=== PATIENT | male | born 1930 | race Caucasian/White ===

== ENCOUNTER 2016-11-22 02:52 | Inpatient (IN) | payer MEDICARE, BC ==
[~2016-11-22] VITALS: Ht 177.8 cm; Wt 80.4 kg
[2016-11-22] VITALS (10 sets, daily range): BP systolic 118–133; BP diastolic 55–61; PULSE 48–82; RESP 16–18; TEMP 99.4; Ht 177.8 cm; Wt 80.4 kg
[~2016-11-22 02:52] MED LIST: ASPI-664 PO; ATOR40TA68 PO; FINA5TAB4 PO; LEVO50TA71 PO; OMEP20CA16 PO
[2016-11-22] MEDS ORDERED: SOD CHLORIDE 0.9% 500 ML IV STA (03:13)
[2016-11-22] MEDS ORDERED: ONDANSETRON 4 MG INJ IV STA ×2 (03:31→04:47)
[2016-11-22] MEDS ORDERED: SOD CHLORIDE 0.9% 250 ML IV STA (03:32)
[2016-11-22 03:38] LABS: ADD SCAN DIFF NO
[2016-11-22 03:44] LABS: ABNORMAL IP MESSAGE 1; HEMATOCRIT 44.8 % (42.0-52.0); MEAN CORPUSCULAR HEMOGLOBIN 29.1 pg (29.0-33.0); MEAN CORPUSCULAR HGB CONC 33.5 g/dl (32.0-37.0); MEAN PLATELET VOLUME 9.7 fl (7.4-10.4); PLATELET COUNT 145 10^3/UL (140-415); RED BLOOD COUNT 5.15 10^6/ul (4.70-6.10); RED CELL DISTRIBUTION WIDTH 13.3 % (11.5-14.5); WHITE BLOOD COUNT 9.3 10^3/ul (4.8-10.8)
--- NOTE | 2016-11-22 03:44 | RADRPT ---
PROCEDURE: XR Chest. CLINICAL INDICATION: Chest pain TECHNIQUE: AP Portable chest. COMPARISON: No pertinent prior examinations were submitted for comparison. FINDINGS: There is mild to moderate cardiomegaly. Atherosclerotic calcifications are noted in the aorta. Haydee or median sternotomy is noted. Some slight prominent interstitial markings are noted throughout the chest. The osseous structures are unremarkable. IMPRESSION: Mildly increased interstitial markings possibly due to interstitial edema. RPTAT: HIKT .Giorgio Rocha MD, MD Date Time Electronically viewed and signed by .Giorgio Rocha MD, MD on 11/22/2016 03:43 .T/
[2016-11-22 03:51] LABS: INR 0.94; PARTIAL THROMBOPLASTIN TIME 26.2 Sec (25.0-35.0); PROTIME 12.6 Sec (12.2-14.2)
[2016-11-22 03:54] LABS: ALBUMIN 4.3 g/dl (3.3-4.9); CHLORIDE 102 mmol/L (97-110); SODIUM 137 mmol/L (135-144)
[2016-11-22 03:57] LABS: ALANINE AMINOTRANSFERASE 25 IU/L (13-69); ALBUMIN/GLOBULIN RATIO 1.34; ALKALINE PHOSPHATASE 56 IU/L (42-121); ANION GAP 15 (8-16); ASPARTATE AMINO TRANSFERASE 36 IU/L (15-46); BILIRUBIN,INDIRECT 1.2 mg/dl (0-1.1); BILIRUBIN,TOTAL 1.2 mg/dl (0.2-1.3); BLOOD UREA NITROGEN 23 mg/dl (7-20); CARBON DIOXIDE 24 mmol/L (21-31); CREATININE 0.98 mg/dl (0.61-1.24); GLUCOSE 121 mg/dl (70-220); TOTAL PROTEIN 7.5 g/dl (6.1-8.1)
[2016-11-22 03:58] LABS: CALCIUM 9.4 mg/dl (8.4-10.2)
[2016-11-22] MEDS ORDERED: IOHEXOL 300MG/ML 150 ML BTL ONE (03:58)
[2016-11-22] MEDS ORDERED: SOD CHLORIDE 0.9% 100 ML ONE (03:58)
--- NOTE | 2016-11-22 04:04 | RADRPT ---
PROCEDURE: Noncontrast CT Head. CLINICAL INDICATION: Dizziness TECHNIQUE: Noncontrast CT of the head was obtained. The administered radiation dose was CTDI vol = 45 mGy, DLP = 810 mGy-cm. COMPARISON: No pertinent prior examinations were submitted for comparison. FINDINGS: The ventricles and cortical sulci are mildly enlarged. There is mild decreased attenuation within t he periventricular and subcortical white matter compatible with chronic microvascular changes. There is no acute intracranial hemorrhage or extra-axial fluid collection. There is no mass effect . No midline shift is identified. There is no loss of meza-white differentiation to suggest acute in farction. The orbits are within normal limits. Some mild mucosal thickening is scattered throughout the parana tyron sinuses. No destructive osseous lesion is identified. IMPRESSION: No acute findings. Mild diffuse parenchymal volume loss and chronic microvascular changes. RPTAT: HIKT .Giorgio Rocha MD, MD Date Time Electronically viewed and signed by .Giorgio Rocha MD, on 11/22/2016 04:03 .T/
[2016-11-22 04:17] LABS: TROPONIN-I < 0.012 ng/ml (0.00-0.12)
--- NOTE | 2016-11-22 04:22 | RADRPT ---
PROCEDURE: CT angiogram of the chest, abdomen and pelvis with contrast. CLINICAL INDICATION: Chest pain. TECHNIQUE: CT angiogram of the chest, abdomen and pelvis was performed on a multi-detector high-r [employer] CT scanner. Contiguous axial images were obtained during the dynamic injection of 100 cc of Omnipaque 350 intravenous contrast. Coronal and sagittal reformatted images were also obtained. 3-D reformatted images were also obtained. Images were reviewed on the PACS workstation. One or more of the following dose reduction techniques were used: - Automated exposure control. - Adjustment of the mA and/or kV according to patient size. - Use of iterative reconstruction technique. Exam CTD/vol = 15.08 mGy. Total exam DLP = 1231.86 mGy-cm. COMPARISON: None. FINDINGS: Chest: The main pulmonary artery followed to the segmental divisions are well opacified. There is no filling defect or evidence of pulmonary embolism. The heart is increased in size with coronary a rtery calcifications. There is no pericardial thickening or effusion. The aorta is of normal cours e and caliber with scattered atherosclerotic calcifications. There is no evidence of aortic aneurys m or dissection. There is a stent within the ascending aorta. Mediasternotomy wires are present. The visualized thyroid is unremarkable. There are no enlarged a xillary lymph nodes. There are no enlarged mediastinal or hilar lymph nodes by CT criteria. There i s mild scarring within the right upper lobe. There is an irregular density within the posterior lef t upper lobe (image 65) measuring 3.0 x 2.0 cm. There is mild bibasilar atelectasis with an area of rounded atelectasis within the left posterior sulcus. There is calcified pleural plaques within the left posterior sulcus. There is no pleural effusion. The central tracheobronchial tree is within normal limits. Abdomen: The liver is normal in size. There is no focal mass or dilatation of the biliary tree. T he gallbladder is not distended. A small gallstone is identified. The spleen, pancreas and bilateral adrenal glands are within normal limits. Bilateral kidneys are normal in size with symmetric enhan cement. There is a small cyst within the mid left kidney. There is no hydronephrosis or hydrourete r. There is no retroperitoneal adenopathy. The abdominal aorta is of normal caliber without eviden ce of aneurysm or dissection. There are scattered atherosclerotic calcifications. There is a moderate-sized hiatal hernia. There is no abnormal bowel wall thickening or distension. There is no bowel obstruction or free air. The appendix is not visualized. There is sigmoid diver ticulosis without evidence of diverticulitis. There is no ascites. Pelvis: The bladder is unremarkable. The prostate is moderately enlarged. There is no significant pelvic adenopathy or free fluid. Evaluation of the osseous structures demonstrates no suspicious lytic or blastic lesion. IMPRESSION: No evidence of pulmonary embolism or aortic dissection. Irregular density within the posterior left upper lobe measuring 3.0 x 2.0 cm. Findings could repres ent rounded atelectasis; however, follow-up is recommended. Mild bibasilar atelectasis with an area of rounded atelectasis within the left posterior sulcus. Calcified pleural plaques within the left posterior sulcus could be due to old infectious/inflammato ry process or prior asbestos exposure. Mild to moderate cardiomegaly. Vascular calcifications reflective of atherosclerosis. Cholelithiasis. Moderate sized hiatal hernia. Sigmoid diverticulosis without evidence of diverticulitis. Moderately enlarged prostate. .Nino German MD, MD Date Time Electronically viewed and signed by .Nino German MD, MD on 11/22/2016 04:22 .T/
[2016-11-22 04:32] LABS: LYMPHOCYTES # 0.1 10^3/ul (0.8-2.9); MONOCYTE # 0.1 10^3/ul (0.3-0.9); NEUTROPHIL # 8.3 10^3/ul (1.6-7.5); PLATELET ESTIMATE PLT APPEAR ADEQUATE
[2016-11-22] MEDS ORDERED: SODIUM CHLORIDE 0.9% 1L BAG IV* STA (04:47)
[2016-11-22] MEDS ORDERED: CEFTRIAXONE 1 GM/50 ML (PMX) 50 ML IVPB STA (04:47)
[2016-11-22 04:52] LABS: ADD UMIC YES; URINE BILIRUBIN (Dip) NEGATIVE (NEGATIVE); URINE BLOOD (Dip) 1+ (NEGATIVE); URINE COLOR LT. YELLOW (YELLOW); URINE GLUCOSE (Dip) NEGATIVE (NEGATIVE); URINE KETONES (Dip) NEGATIVE (NEGATIVE); URINE LEUKOCYTE ESTERASE (Dip) NEGATIVE (NEGATIVE); URINE NITRITE (Dip) NEGATIVE (NEGATIVE); URINE TOTAL PROTEIN (Dip) NEGATIVE (NEGATIVE); URINE UROBILINOGEN (Dip) 0.2 E.U./dL (0.1-1.0)
[2016-11-22 05:01] LABS: SQUAMOUS EPITHELIAL CELL,UR RARE
--- NOTE | 2016-11-22 05:21 | ERA ---
ER Documentation Chief Complaint Date/Time DATE: 11/22/16 TIME: 05:00 Chief Complaint dizziness and nausea for 30 minutes HPI 86-year-old male with a history of CABG, TAVR, BPH and hypothyroidism presenting to the ER for acute onset dizziness and weakness at home. Per his girlfriend, he was getting out of bed to go use the restroom and felt very dizzy and weak. He started urinating on himself as he could not make it to the bathroom. He denied any chest pain, shortness of breath, vision disturbance. He felt somewhat lightheaded with some room spinning dizziness and states his legs started to feel very weak. He has not felt like this before. He denies any recent illnesses. No current chest pain, shortness of breath, fever, chills , abdominal pain, or back pain. He does endorse bilateral lower extremity pain that he is unable to describe. ROS All systems reviewed and are negative except as per history of present illness. Medications Home Meds Reported Medications Atorvastatin* (Atorvastatin*) 40 Mg Tablet, 40 MG PO QHS, #30 TAB 06/20/16 Omeprazole* (Omeprazole*) 20 Mg Capsule.dr, 20 MG PO DAILY, #30 CAP 06/20/16 Finasteride* (Finasteride*) 5 Mg Tablet, 5 MG PO DAILY, TAB 06/20/16 Levothyroxine Sodium* (Levoxyl*) 50 Mcg Tablet, 50 MCG PO BEFORE BREAKFAST, #30 TAB 06/20/16 Aspirin (Low Dose Aspirin) 81 Mg Tablet.dr, 81 MG PO DAILY, #30 TAB 06/20/16 Allergies Allergies: Coded Allergies: No Known Allergy (Unverified , 06/20/16) PMhx/Soc History of Surgery: Yes (valve replacement and five vessel bypass) Anesthesia Reaction: No Hx Neurological Disorder: No Hx Respiratory Disorders: No Hx Cardiac Disorders: Yes (CABG, VALVE REPLACEMENT) Hx Psychiatric Problems: No Hx Miscellaneous Medical Probl: Yes (Hypothyroidism, BPH) Hx Alcohol Use: Yes (1-2 BEERS/WEEK) Hx Substance Use: No Hx Tobacco Use: No Smoking Status: Never smoker FmHx Family History: No diabetes Physical Exam Vitals Vital Signs Date Time Temp Pulse Resp B/P Pulse Ox O2 Delivery O2 Flow Rate FiO2 11/22/16 05:40 100.3 83 20 138/58 100 Room Air 11/22/16 04:38 101.3 89 18 147/64 96 11/22/16 03:34 99.3 90 177/78 11/22/16 03:08 84 26 177/78 98 Physical Exam Const: Ill-appearing, no distress, sleepy Head: Atraumatic Eyes: Normal Conjunctiva, PERRLA, EOMI, no nystagmus ENT: Dry oral mucosa Neck: Full range of motion. No JVD. No meningismus. Resp: Clear to auscultation bilaterally Cardio: Regular rate and rhythm, no murmurs Abd: Soft, non tender, non distended. No pulsatile masses. Normal bowel sounds Skin: No petechiae or rashes Back: No midline or flank tenderness Ext: No cyanosis, or edema. 2+ radial pulses bilaterally, equal. 2+ DP and PT pulses bilaterally, equal. Neur: Awake, sleepy, oriented 3. Cranial nerves intact. Strength and sensations intact in all 4 extremities. Difficulty with rapid alternating movements, unable to test gait secondary to dizziness Psych: Normal Mood and Affect Result Diagram: 11/22/16 0325 11/22/16 0325 Results 24 hrs Laboratory Tests Test 11/22/16 03:25 11/22/16 04:35 White Blood Count 9.310^3/ul Red Blood Count 5.1510^6/ul Hemoglobin 15.0g/dl Hematocrit 44.8% Mean Corpuscular Volume 87.0fl Mean Corpuscular Hemoglobin 29.1pg Mean Corpuscular Hemoglobin Concent 33.5g/dl Red Cell Distribution Width 13.3% Platelet Count 96370^3/UL Mean Platelet Volume 9.7fl Neutrophils % 89.0% Band Neutrophils % 9.0% Lymphocytes % 1.0% Monocytes % 1.0% Neutrophils # 8.310^3/ul Lymphocytes # 0.110^3/ul Monocytes # 0.110^3/ul Platelet Estimate PLT APPEAR ADEQUATE Prothrombin Time 12.6Sec Prothrombin Time Ratio 1.0 INR International Normalized Ratio 0.94 Activated Partial Thromboplast Time 26.2Sec Sodium Level 137mmol/L Potassium Level 4.0mmol/L Chloride Level 102mmol/L Carbon Dioxide Level 24mmol/L Anion Gap 15 Blood Urea Nitrogen 23mg/dl Creatinine 0.98mg/dl Glucose Level 121mg/dl Calcium Level 9.4mg/dl Total Bilirubin 1.2mg/dl Direct Bilirubin 0.00mg/dl Indirect Bilirubin 1.2mg/dl Aspartate Amino Transf (AST/SGOT) 36IU/L Alanine Aminotransferase (ALT/SGPT) 25IU/L Alkaline Phosphatase 56IU/L Troponin I < 0.012ng/ml Total Protein 7.5g/dl Albumin 4.3g/dl Globulin 3.20g/dl Albumin/Globulin Ratio 1.34 Urine Color LT. YELLOW Urine Clarity CLEAR Urine pH 7.5 Urine Specific [place] 1.010 Urine Ketones NEGATIVE Urine Nitrite NEGATIVE Urine Bilirubin NEGATIVE Urine Urobilinogen 0.2 E.U./dL Urine Leukocyte Esterase NEGATIVE Urine Microscopic RBC 5-10/HPF Urine Microscopic WBC 0-2/HPF Urine Squamous Epithelial Cells RARE Urine Hemoglobin 1+ Urine Glucose NEGATIVE% Urine Total Protein NEGATIVE Current Medications Medications (Trade) Dose Ordered Sig/Vel Route PRN Reason Start Time Stop Time Status Last Admin Dose Admin Sodium Chloride (NS) 500 ml @ 500 mls/hr Q1H STAT IV 11/22/16 03:13 11/22/16 04:12 DC 11/22/16 03:46 Ondansetron HCl 4 mg 4 mg ONCE STAT IV 11/22/16 03:31 11/22/16 03:33 DC 11/22/16 03:46 Sodium Chloride 250 ml @ 250 mls/hr Q1H STAT IV 11/22/16 03:32 11/22/16 04:31 DC 11/22/16 05:06 Sodium Chloride (NS) 100 ml @ ud STK-MED ONCE .ROUTE 11/22/16 03:58 11/22/16 03:59 DC 11/22/16 04:18 Iohexol (Omnipaque 300mg/ ml) 150 ml STK-MED ONCE .ROUTE 11/22/16 03:58 11/22/16 03:59 DC 11/22/16 04:17 Sodium Chloride 1830 ml 1,830 ml BOLUS OVER 2 HOURS STAT IV* 11/22/16 04:47 11/22/16 04:51 DC 11/22/16 05:05 Ceftriaxone Sodium (Rocephin) 50 ml @ 100 mls/hr ONCE STAT IVPB 11/22/16 04:47 11/22/16 05:16 DC 11/22/16 05:05 Ondansetron HCl (Zofran Inj) 4 mg ONCE STAT IV 11/22/16 04:47 11/22/16 04:51 DC 11/22/16 05:05 Procedures/MDM EMERGENT LABS AND DIAGNOSTIC STUDIES: Lab Results above were reviewed and interpreted by me. CBC and CMP within normal limits Troponin within normal limits Urinalysis does not show evidence of UTI EKG #1: Rate/Rhythm: Normal Sinus Rhythm QRS, ST, T-waves: Left anterior fascicular block, no changes consistent w/ acute ischemia Impression: No evidence of ischemia or arrhythmia EKG #2: Rate/Rhythm: Normal Sinus Rhythm QRS, ST, T-waves: Left anterior fascicular block, no changes consistent w/ acute ischemia Impression: No evidence of ischemia or arrhythmia Rhythm strip: Rate/Rhythm: Bradycardia at 38 bpm second-degree AV block type II Impression: Sinus Bradycardia at 38 bpm second-degree AV block type II, no evidence of ischemia or arrhythmia Radiology Results as interpreted by Radiology below were reviewed by Tian Hoyos MD: Chest x-ray shows mild interstitial edema CTA chest, abdomen, pelvis: No evidence of pulmonary embolism or aortic dissection. Irregular density within the posterior left upper lobe measuring 3.0 x 2.0 cm. Findings could represent rounded atelectasis; however, follow-up is recommended. Mild bibasilar atelectasis with an area of rounded atelectasis within the left posterior sulcus. Calcified pleural plaques within the left posterior sulcus could be due to old infectious/inflammatory process or prior asbestos exposure. Mild to moderate cardiomegaly. Vascular calcifications reflective of atherosclerosis. Cholelithiasis. Moderate sized hiatal hernia. Sigmoid diverticulosis without evidence of diverticulitis. Moderately enlarged prostate. CT head: No acute abnormalities Initial Nursing notes reviewed. Previous Medical Records requested via the Electronic Health Record. EMERGENCY DEPARTMENT COURSE / MEDICAL DECISION MAKING: Patient is presenting with generalized weakness, intermittent dizziness, and nausea. Upon presentation, the patient was afebrile with mild tachypnea. Differential includes but is not limited to acute coronary syndrome, acute infection, CVA, intracranial hemorrhage. Chest x-ray did not show pneumonia but there is some interstitial edema. CT head was normal. There are no significant findings on exam other than some urinary hesitation. The patient did spike a fever while in the department. The source of this is unclear. Sepsis workup was initiated. Urinalysis does not show evidence of infection. CTA of the chest abdomen and pelvis was done to evaluate for aortic dissection and did not show evidence of dissection or other acute abnormalities. Broad- spectrum antibiotics and 30 cc/kg of IV fluids were given. It is still possible that his fever is not secondary to an infection. It is also possible that he has occult bacteremia of unclear etiology. I have a low suspicion for meningitis or encephalitis. Several times during his stay, the patient became bradycardic to the 30s with associated nausea and dizziness. Rhythm strip shows evidence of paroxysmal bradycardia with type II AV block, indicative of sick sinus syndrome. Patient will likely need an AICD placement. Patient's symptoms have not stabilized and the patient is at risk of rapid decompensation. The patient will be admitted for careful hydration, cardiac monitoring, antibiotic therapy, and infectious source control. Severe Sepsis Assessment: Infectious Source: Unknown End organ damage indicated by: none Severe Sepsis Managment: Blood Cultures X 2 before broad spectrum antibiotics initiated within 3 hours of recognition. 30 ml/kg NS bolus Completed Initial Lactate: normal Repeat Lactate not indicated as initial < 2.0 Critical Care: Time: 40 minutes Treatments/Evaluations: Emergent fluid management, while maintaining close respiratory support. Immediate broad spectrum antibiotic therapy. Simultaneous assessment for possible sources in order to direct therapy. Consideration for invasive and chemical support to prevent respiratory or cardiac collapse. Septic Shock Assessment (1 hour post 30 ml/kg fluid bolus): Hypotension (SBP < 90 or 40 mmHg drop, MAP < 65): [No] Lactic acid > 4.0 [No] Accepting Care Team: Current data and ongoing care discussed. Time: Time of admission Primary Provider: Chris Consulting: none Outstanding Data: cultures Departure Diagnosis: Primary Impression: Near syncope Additional Impressions: Generalized weakness Bradycardia, unspecified Fever Qualified Code: R50.9 - Fever, unspecified fever cause Condition: Critical LEANDRA HOYOS MD Nov 22, 2016 05:12 ultrasound volume assessment, passive leg raise, trial of further fluid bolus. And proceded with [XOXOXO] Accepting Care Team: Current data and ongoing care discussed. Time: Time of admission Primary Provider: [XOXOXO] Consulting: [XOXOXO] Outstanding Data: none Departure Diagnosis: Primary Impression: Near syncope Additional Impressions: Generalized weakness Bradycardia, unspecified Fever Qualified Code: R50.9 - Fever, unspecified fever cause Condition: Serious LEANDRA HOYOS MD Nov 22, 2016 05:12
[2016-11-22] MEDS ORDERED: ACETAMINOPHEN 325 MG TAB PO PRN ×2 (06:30→09:30)
[2016-11-22] MEDS ORDERED: ONDANSETRON 4 MG INJ IV PRN ×2 (06:30→09:30)
[2016-11-22] MEDS ORDERED: DOCUSATE SODIUM 100 MG CAP PO PRN (09:30)
[2016-11-22] MEDS ORDERED: NACL 0.9% 3 ML SYG IV SCH (09:30)
[2016-11-22 10:18] LABS: CREATINE KINASE 59 IU/L (23-200)
--- NOTE | 2016-11-22 10:19 | CONS ---
Date/Time of Note Date/Time of Note DATE: 11/22/16 TIME: 10:15 Assessment/Plan Assessment/Plan Additional Assessment/Plan WEAKNESS/DIZZINESS S/P BRADYCARDIA WITH SECOND DEGREEE HEART BLOCK - TYPE I VS !! HX OF CABG HX OF BIOAVR > S/P TAVR HX OF HEAD AND NECK CANCER HTN -The patinent with sinus bradycardia at HR 40 that was transeint wiht Second Degreee Mobitz heart block - ccould be wenkeback vs Type 2 -Will monitor on tele, but no recurrence -will plan for an echo -avoid av blolockers -add acei due to hx of CAB Consultation Date/Type/Reason Admit Date/Time Nov 22, 2016 at 06:14 Hx of Present Illness 86-year-old male with a history of CABG, TAVR, BPH and hypothyroidism presenting to the ER for acute onset dizziness and weakness at home. His hx was obtained from his daughter but he was wiht his girlfriend at that time - he was getting out of bed to go use the restroom and felt very dizzy and weak. He started urinating on himself as he could not make it to the bathroom. He denied any chest pain, shortness of breath, vision disturbance. He felt somewhat lightheaded with some room spinning dizziness and states his legs started to feel very weak. He has not felt like this before. He denies any recent illnesses. No current chest pain, shortness of breath, fever, chills, abdominal pain, or back pain. Upon arrival to the ER, he had transient bradycardia wiht heart blokc but no sycnope ad as such, I was asked to see him in cardiac consultaiton. Social History Smoking Status: Never smoker Exam/Review of Systems Vital Signs Vitals Vital Signs Date Time Temp Pulse Resp B/P Pulse Ox O2 Delivery O2 Flow Rate FiO2 11/22/16 08:16 82 11/22/16 07:57 98.0 18 123/58 93 11/22/16 07:32 Room Air Results Result Diagram: 11/22/16 0325 11/22/16 0325 Results 24 hrs Laboratory Tests Test 11/22/16 03:25 11/22/16 04:35 11/22/16 05:00 11/22/16 07:10 White Blood Count 9.3 Red Blood Count 5.15 Hemoglobin 15.0 Hematocrit 44.8 Mean Corpuscular Volume 87.0 Mean Corpuscular Hemoglobin 29.1 Mean Corpuscular Hemoglobin Concent 33.5 Red Cell Distribution Width 13.3 Platelet Count 145 Mean Platelet Volume 9.7 Neutrophils % 89.0 H Band Neutrophils % 9.0 H Lymphocytes % 1.0 L Monocytes % 1.0 Neutrophils # 8.3 H Lymphocytes # 0.1 L Monocytes # 0.1 L Platelet Estimate PLT APPEAR ADEQUATE Prothrombin Time 12.6 Prothrombin Time Ratio 1.0 INR International Normalized Ratio 0.94 Activated Partial Thromboplast Time 26.2 Sodium Level 137 Potassium Level 4.0 Chloride Level 102 Carbon Dioxide Level 24 Anion Gap 15 Blood Urea Nitrogen 23 H Creatinine 0.98 Glucose Level 121 Calcium Level 9.4 Total Bilirubin 1.2 Direct Bilirubin 0.00 Indirect Bilirubin 1.2 H Aspartate Amino Transf (AST/SGOT) 36 Alanine Aminotransferase (ALT/SGPT) 25 Alkaline Phosphatase 56 Troponin I < 0.012 Total Protein 7.5 Albumin 4.3 Globulin 3.20 Albumin/Globulin Ratio 1.34 Urine Color LT. YELLOW Urine Clarity CLEAR Urine pH 7.5 Urine Specific [place] 1.010 Urine Ketones NEGATIVE Urine Nitrite NEGATIVE Urine Bilirubin NEGATIVE Urine Urobilinogen 0.2 E.U./dL Urine Leukocyte Esterase NEGATIVE Urine Microscopic RBC 5-10 Urine Microscopic WBC 0-2 Urine Squamous Epithelial Cells RARE Urine Hemoglobin 1+ H Urine Glucose NEGATIVE Urine Total Protein NEGATIVE Lactic Acid Level 1.2 0.9 Medications Medications Current Medications Ondansetron HCl (Zofran Inj) 4 mg Q6H PRN IV NAUSEA AND/OR VOMITING; Start at 09:30 Aspirin (Aspirin) 81 mg DAILY PO ; Start 11/22/16 at 10:30 Acetaminophen (Tylenol Tab) 650 mg Q6H PRN PO PAIN LEVEL 1-3 OR FEVER; Start at 09:30 Docusate Sodium (Colace) 100 mg Q12H PRN PO CONSTIPATION; Start 11/22/16 at 09: 30 Pantoprazole (Protonix Tab) 40 mg DAILY@06 PO ; Start 11/22/16 at 10:30 Enoxaparin Sodium (Lovenox) 40 mg DAILY SC ; Start 11/22/16 at 10:30 Atorvastatin Calcium (Lipitor) 40 mg QHS PO ; Start 11/22/16 at 21:00 Finasteride (Proscar) 5 mg DAILY PO ; Start 11/22/16 at 11:30 BILLY HINKLE MD Nov 22, 2016 10:19
[2016-11-22 10:25] LABS: CK-MB 0.85 ng/ml (0.0-2.4)
[2016-11-22 10:33] LABS: TROPONIN-I < 0.012 ng/ml (0.00-0.12)
[2016-11-22] MEDS: PANTOPRAZOLE (EC) 40 MG TAB PO SCH (11:01)
[2016-11-22] MEDS: ASPIRIN 81 MG TAB PO SCH (11:01)
[2016-11-22] MEDS: ENOXAPARIN 40 MG/0.4 ML SYG SC SCH (11:02)
--- NOTE | 2016-11-22 13:01 | HP ---
Date/Time of Note Date/Time of Note DATE: 11/22/16 TIME: 12:45 Assessment/Plan VTE Prophylaxis VTE Prophylaxis Intervention: LMWH Lines/Catheters IV Catheter Type (from Nrs): Peripheral IV Assessment/Plan Problems: (1) Fever Status: Acute Comment: Uncertain etiology. Pt. did receive antibiotics in ER but no source identified. Possibly viral. Will monitor. Poss. ID consult if recurs. Qualifiers: Fever type: unspecified Qualified Code: R50.9 - Fever, unspecified fever cause (2) Mobitz (type) II atrioventricular block Status: Acute Comment: Cardiology consult to eval. May need pacer (3) Cardiomegaly Status: Chronic Comment: Cardiology consult to eval. ECHO likely (4) Atelectasis pulmonary Status: Acute Comment: Monitor respiratory status (5) Pure hypercholesterolemia Status: Chronic Comment: Cont. statin (6) Gastro-esophageal reflux disease without esophagitis Status: Chronic Comment: Cont. PPI (7) Hypothyroidism Status: Chronic Comment: Cont. LT4. Check TFT Qualifiers: Hypothyroidism type: acquired Qualified Code: E03.9 - Acquired hypothyroidism (8) Enlarged prostate with lower urinary tract symptoms (LUTS) Status: Chronic Qualifiers: Prostatic enlargement morphology: unspecified morphology Qualified Code: N40.1 - Benign prostatic hyperplasia with lower urinary tract symptoms, unspecified morphology HPI/ROS Admit Date/Time Admit Date/Time Nov 22, 2016 at 06:14 Hx of Present Illness 86 y/o C M w/ h/o CAD s/p CABG, aortic valve disease s/p bioreplacement, s/p TAVR, laryngeal CA s/p XRT, hypothyroidism, hyperlipidemia, GERD, BPH in [facility] until early this am when he awoke to go to the bathroom which he usually does several times per night. However, in this case, was too weak to get up. Developed chills. GF called daughter who came over and tried to help pt. but pt. could not be helped and 911 had to be called. Pt. brought to [facility]. In ER pt. initially hypertensive and subsequently febrile to 101.3 but no source identified. Pt. had intermittent Mobitz II rhythm on the heart monitor. Pt. had CT angiogram and head CT that did not yield any acute findings and labs were also not helpful. Pt. admitted for monitoring, cardiology eval and further work-up. ROS Subjective hx not possible: pt non-verbal (sleeping) PMH/Family/Social Past Medical History Medical History: cancer (laryngeal), coronary artery disease, GERD, high cholesterol, hypothyroid, other (BPH, aortic valve disease) Past Surgical History Past Surgical Hx: coronary bypass surgery, other (aortic valve replacement x 2) Family History Significant Family History: heart disease (father and GF), cancer (mother) Social History b. MARY Diaz, dental school grad, [employer] ret'd, ret'd DDS, , 3 children , lives w/ GF Alcohol Use: occasionally Smoking Status: Former smoker (small amount in youth) Drug Use: none Exam/Review of Systems Vital Signs Vitals VS - Last 72 Hours, by Label Date Time Temp Pulse Resp B/P Pulse Ox O2 Delivery O2 Flow Rate FiO2 11/22/16 12:15 68 11/22/16 11:33 98.2 78 18 118/57 95 11/22/16 08:16 82 11/22/16 07:57 98.0 85 18 123/58 93 11/22/16 07:32 99.4 83 20 134/69 98 Room Air 11/22/16 06:40 100.5 85 18 130/78 95 Room Air 11/22/16 05:40 100.3 83 20 138/58 100 Room Air 11/22/16 04:38 101.3 89 18 147/64 96 11/22/16 03:34 99.3 90 177/78 11/22/16 03:08 84 26 177/78 98 Vital Signs Date Time Temp Pulse Resp B/P Pulse Ox O2 Delivery O2 Flow Rate FiO2 11/22/16 12:15 68 11/22/16 11:33 98.2 18 118/57 95 11/22/16 07:32 Room Air Exam Constitutional: alert, oriented, well developed Psych: nl mood/affect, no complaints Eyes: EOMI, PERRL, nl conjunctiva, nl lids, nl sclera ENMT: mucosa pink and moist, nl external ears & nose Neck: non-tender, supple, No bruits, No masses, No thyromegaly Respiratory: clear to auscultation, normal air movement Cardiovascular: nl pulses, regular rate and rhythm, No edema, No murmurs/extra sounds, No rub Gastrointestinal: bowel sounds, nl liver, spleen, non-tender, soft, No mass, No rebound or guarding Musculoskeletal: nl extremities to inspection Extremities: normal pulses, No clubbing, No cyanosis, No edema Neurological: lethargic Labs Result Diagram: 11/22/16 0325 11/22/16 0325 Medications Medications Current Medications Ondansetron HCl (Zofran Inj) 4 mg Q6H PRN IV NAUSEA AND/OR VOMITING; Start at 09:30 Aspirin (Aspirin) 81 mg DAILY PO Last administered on 11/22/16 11:01; Admin Dose 81 MG; Start 11/22/16 at 10:30 Acetaminophen (Tylenol Tab) 650 mg Q6H PRN PO PAIN LEVEL 1-3 OR FEVER; Start at 09:30 Docusate Sodium (Colace) 100 mg Q12H PRN PO CONSTIPATION; Start 11/22/16 at 09: 30 Pantoprazole (Protonix Tab) 40 mg DAILY@06 PO Last administered on 11/22/16 11 :01; Admin Dose 40 MG; Start 11/22/16 at 10:30 Enoxaparin Sodium (Lovenox) 40 mg DAILY SC Last administered on 11/22/16 11:02 ; Admin Dose 40 MG; Start 11/22/16 at 10:30 Atorvastatin Calcium (Lipitor) 40 mg QHS PO ; Start 11/22/16 at 21:00 Finasteride (Proscar) 5 mg DAILY PO ; Start 11/22/16 at 11:30 Benazepril HCl (Lotensin) 5 mg DAILY PO ; Start 11/23/16 at 09:00 MAKAYLA RAMIREZ MD Nov 22, 2016 12:55
[2016-11-22] MEDS: FINASTERIDE 5 MG TAB PO SCH (13:14)
[2016-11-22] MEDS: LEVOTHYROXINE 50 MCG TAB PO SCH (13:14)
[2016-11-22 15:52] LABS: CREATINE KINASE 58 IU/L (23-200)
[2016-11-22 16:10] LABS: CK-MB 0.76 ng/ml (0.0-2.4); TROPONIN-I < 0.012 ng/ml (0.00-0.12)
[2016-11-22] MEDS: ATORVASTATIN 40 MG TAB PO SCH (21:12)
[2016-11-23] VITALS (15 sets, daily range): BP systolic 107–129; BP diastolic 55–62; PULSE 56–128; RESP 16–20
[2016-11-23] MEDS: LEVOTHYROXINE 50 MCG TAB PO SCH ×2 (05:44→08:52)
[2016-11-23] MEDS: PANTOPRAZOLE (EC) 40 MG TAB PO SCH (05:44)
[2016-11-23 07:05] LABS: ADD SCAN DIFF NO
[2016-11-23 07:10] LABS: ABNORMAL IP MESSAGE 1; BASOPHILS % 0.3 % (0.0-2.0); EOSINOPHILS # 0.1 10^3/ul (0.0-0.5); EOSINOPHILS % 0.9 % (0.0-7.0); HEMATOCRIT 38.8 % (42.0-52.0); LYMPHOCYTES # 0.6 10^3/ul (0.8-2.9); LYMPHOCYTES % 6.9 % (15.0-51.0); MEAN CORPUSCULAR HEMOGLOBIN 29.2 pg (29.0-33.0); MEAN CORPUSCULAR HGB CONC 33.5 g/dl (32.0-37.0); MEAN CORPUSCULAR VOLUME 87.2 fl (82.0-101.0); MEAN PLATELET VOLUME 9.5 fl (7.4-10.4); MONOCYTE # 0.5 10^3/ul (0.3-0.9); MONOCYTES % 5.9 % (0.0-11.0); NEUTROPHIL # 6.8 10^3/ul (1.6-7.5); NEUTROPHILS % 85.6 % (39.0-77.0); PLATELET COUNT 97 10^3/UL (140-415); RED BLOOD COUNT 4.45 10^6/ul (4.70-6.10); RED CELL DISTRIBUTION WIDTH 13.6 % (11.5-14.5); WHITE BLOOD COUNT 7.9 10^3/ul (4.8-10.8)
[2016-11-23 07:36] LABS: ALBUMIN/GLOBULIN RATIO 1.11; BILIRUBIN,INDIRECT 1.1 mg/dl (0-1.1); BILIRUBIN,TOTAL 1.1 mg/dl (0.2-1.3); CREATININE 1.01 mg/dl (0.61-1.24); MAGNESIUM 1.9 mg/dl (1.7-2.5); POTASSIUM 3.8 mmol/L (3.5-5.1); TOTAL PROTEIN 5.7 g/dl (6.1-8.1)
[2016-11-23 07:55] LABS: THYROID STIMULATING HORMONE 3.28 MIU/L (0.465-4.680)
[2016-11-23] MEDS: FINASTERIDE 5 MG TAB PO SCH (08:52)
[2016-11-23] MEDS: ASPIRIN 81 MG TAB PO SCH (08:55)
[2016-11-23] MEDS: ENOXAPARIN 40 MG/0.4 ML SYG SC SCH (08:55)
[2016-11-23] MEDS: BENAZEPRIL 5 MG TAB PO SCH (09:00)
--- NOTE | 2016-11-23 09:09 | RADRPT ---
PROCEDURE: XR Chest. CLINICAL INDICATION: Shortness of breath. TECHNIQUE: Single frontal view. COMPARISON: 11/22/2016. FINDINGS: There is mild atelectasis in the left mid lung zone. The lungs are otherwise clear. The heart is enlarged. There is calcification in the aorta consistent with atherosclerosis. There are sternal wires and mediastinal clips and transarterial aortic valve replacement. There is no pleural effusion. There is no pneumothorax. IMPRESSION: 1. Mild atelectasis in the left mid lung zone. 2. Cardiomegaly and atherosclerosis. 3. Transarterial aortic valve replacement. 4. Otherwise unremarkable study. RPTAT: QQ .Corona Willoughby MD, MD Date Time Electronically viewed and signed by .Corona Willoughby MD, MD on 11/23/2016 09:08 .R/
--- NOTE | 2016-11-23 14:05 | PN ---
Date/Time of Note Date/Time of Note DATE: 11/23/16 TIME: 13:57 Assessment/Plan VTE Prophylaxis VTE Prophylaxis Intervention: LMWH Lines/Catheters IV Catheter Type (from Nrs): Saline Lock Urinary Cath still in place: Yes Reason Cath still needed: urinary retention Assessment/Plan Problems: (1) Fever Status: Acute Comment: Occurred 2x yesterday but has not occurred today. Cultures negative. If recurs, will call ID. O/w likely viral or due to atelectasis. Qualifiers: Fever type: unspecified Qualified Code: R50.9 - Fever, unspecified fever cause (2) Generalized weakness Status: Acute Comment: Seems to be improved but not resolved. Able to ambulate this am w/ PT w/ walker. This is not baseline. Working w/ ST on speech eval (3) Hypothyroidism Status: Chronic Comment: TSH NL on current replacement dose Qualifiers: Hypothyroidism type: acquired Qualified Code: E03.9 - Acquired hypothyroidism (4) Mobitz (type) II atrioventricular block Status: Acute Comment: Defer to cardiology recs (5) Cardiomegaly Status: Chronic Comment: Defer to cardiology recs (6) Constipation Status: Chronic Comment: Add pt.'s home meds to help w/ regular transit Subjective 24 Hr Interval Summary Constitutional: improved, no complaints Respiratory: no complaints Cardiovascular: no complaints Gastrointestinal: constipation Genitourinary: no complaints Musculoskeletal: no complaints Neurologic: no complaints Exam/Review of Systems Vital Signs Vitals VS - Last 72 Hours, by Label Date Time Temp Pulse Resp B/P Pulse Ox O2 Delivery O2 Flow Rate FiO2 11/23/16 12:37 61 11/23/16 12:21 98.1 58 18 129/59 98 11/23/16 08:37 57 11/23/16 08:07 97.9 56 18 121/59 96 11/23/16 04:30 58 11/23/16 03:50 98.3 60 16 108/55 96 11/23/16 00:43 98.3 58 16 124/59 98 11/23/16 00:27 56 11/22/16 22:50 48 11/22/16 20:37 72 11/22/16 20:34 98.2 66 16 118/55 95 11/22/16 16:19 74 11/22/16 15:49 100.6 71 18 133/61 94 11/22/16 12:15 68 11/22/16 11:33 98.2 78 18 118/57 95 11/22/16 08:16 82 11/22/16 07:57 98.0 85 18 123/58 93 11/22/16 07:32 99.4 83 20 134/69 98 Room Air 11/22/16 06:40 100.5 85 18 130/78 95 Room Air 11/22/16 05:40 100.3 83 20 138/58 100 Room Air 11/22/16 04:38 101.3 89 18 147/64 96 11/22/16 03:34 99.3 90 177/78 11/22/16 03:08 84 26 177/78 98 Vital Signs Date Time Temp Pulse Resp B/P Pulse Ox O2 Delivery O2 Flow Rate FiO2 11/23/16 12:37 61 11/23/16 12:21 98.1 18 129/59 98 11/22/16 07:32 Room Air Intake and Output 11/22/16 11/22/16 11/23/16 15:00 23:00 07:00 Intake Total 250 ml Output Total 300 ml Balance -50 ml Exam Constitutional: alert, oriented, well developed Psych: nl mood/affect, no complaints Respiratory: clear to auscultation, normal air movement Cardiovascular: nl pulses, regular rate and rhythm, No edema, No murmurs/extra sounds, No rub Gastrointestinal: bowel sounds, nl liver, spleen, non-tender, soft, No mass, No rebound or guarding Musculoskeletal: nl extremities to inspection Extremities: normal pulses, No clubbing, No cyanosis, No edema Neurological: ACTUARIAL MANAGER II-XII intact, nl mental status, nl speech, nl strength Results Result Diagram: 11/23/1642 11/23/1642 Results 24 hrs Laboratory Tests Test 11/22/16 15:25 11/23/16 06:42 Creatine Kinase 58 Creatine Kinase Index 1.3 Creatinine Kinase MB (Mass) 0.76 Troponin I < 0.012 White Blood Count 7.9 Red Blood Count 4.45 L Hemoglobin 13.0 L Hematocrit 38.8 L Mean Corpuscular Volume 87.2 Mean Corpuscular Hemoglobin 29.2 Mean Corpuscular Hemoglobin Concent 33.5 Red Cell Distribution Width 13.6 Platelet Count 97 #L Mean Platelet Volume 9.5 Neutrophils % 85.6 H Lymphocytes % 6.9 L Monocytes % 5.9 Eosinophils % 0.9 Basophils % 0.3 Nucleated Red Blood Cells % 0.0 Neutrophils # 6.8 Lymphocytes # 0.6 L Monocytes # 0.5 Eosinophils # 0.1 Basophils # 0.0 Nucleated Red Blood Cells # 0.0 Sodium Level 132 L Potassium Level 3.8 Chloride Level 104 Carbon Dioxide Level 26 Anion Gap 6 #L Blood Urea Nitrogen 24 H Creatinine 1.01 Glucose Level 100 Calcium Level 8.0 L Magnesium Level 1.9 Total Bilirubin 1.1 Direct Bilirubin 0.00 Indirect Bilirubin 1.1 Aspartate Amino Transf (AST/SGOT) 25 Alanine Aminotransferase (ALT/SGPT) 27 Alkaline Phosphatase 40 L Total Protein 5.7 #L Albumin 3.0 #L Globulin 2.70 Albumin/Globulin Ratio 1.11 Triglycerides Level 92 Cholesterol Level 147 LDL Cholesterol, Calculated 58 HDL Cholesterol 71 Cholesterol/HDL Ratio 2.0 Thyroid Stimulating Hormone (TSH) 3.280 Medications Medications Current Medications Ondansetron HCl (Zofran Inj) 4 mg Q6H PRN IV NAUSEA AND/OR VOMITING; Start at 09:30 Aspirin (Aspirin) 81 mg DAILY PO Last administered on 11/23/16 08:55; Admin Dose 81 MG; Start 11/22/16 at 10:30 Acetaminophen (Tylenol Tab) 650 mg Q6H PRN PO PAIN LEVEL 1-3 OR FEVER; Start at 09:30 Docusate Sodium (Colace) 100 mg Q12H PRN PO CONSTIPATION; Start 11/22/16 at 09: 30 Pantoprazole (Protonix Tab) 40 mg DAILY@06 PO Last administered on 11/23/16 05 :44; Admin Dose 40 MG; Start 11/22/16 at 10:30 Enoxaparin Sodium (Lovenox) 40 mg DAILY SC Last administered on 11/23/16 08:55 ; Admin Dose 40 MG; Start 11/22/16 at 10:30 Atorvastatin Calcium (Lipitor) 40 mg QHS PO Last administered on 11/22/16 21: 12; Admin Dose 40 MG; Start 11/22/16 at 21:00 Finasteride (Proscar) 5 mg DAILY PO Last administered on 11/23/16 08:52; Admin Dose 5 MG; Start 11/22/16 at 11:30 Benazepril HCl (Lotensin) 5 mg DAILY PO ; Start 11/23/16 at 09:00 MAKAYLA RAMIREZ MD Nov 23, 2016 14:04
--- NOTE | 2016-11-23 15:27 | PN ---
Date/Time of Note Date/Time of Note DATE: 11/23/16 TIME: 15:26 Assessment/Plan VTE Prophylaxis VTE Prophylaxis Intervention: SCD's Lines/Catheters IV Catheter Type (from Nrs): Saline Lock Urinary Cath still in place: Yes Reason Cath still needed: urinary retention Assessment/Plan Chief Complaint/Hosp Course 86-year-old male with a history of CABG, TAVR, BPH and hypothyroidism presenting to the ER for acute onset dizziness and weakness at home. His hx was obtained from his daughter but he was wiht his girlfriend at that time - he was getting out of bed to go use the restroom and felt very dizzy and weak. He started urinating on himself as he could not make it to the bathroom. He denied any chest pain, shortness of breath, vision disturbance. He felt somewhat lightheaded with some room spinning dizziness and states his legs started to feel very weak. He has not felt like this before. He denies any recent illnesses. No current chest pain, shortness of breath, fever, chills, abdominal pain, or back pain. Upon arrival to the ER, he had transient bradycardia wiht heart blokc but no sycnope ad as such, I was asked to see him in cardiac consultaiton. 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 HX OF CABG HX OF BIOAVR > S/P TAVR HX OF HEAD AND NECK CANCER HTN -The patinent with sinus bradycardia at HR 40 that was transeint wiht Second Degreee Mobitz heart block on admission - could be wenkeback vs Type 2 - no recurrence overnight and no pauses -Will monitor on tele, but no recurrence -avoid av blolockers -continue acei due to hx of CABG Subjective 24 Hr Interval Summary Free Text/Dictation The patient is improving and no heart block again on telemetry Exam/Review of Systems Vital Signs Vitals Vital Signs Date Time Temp Pulse Resp B/P Pulse Ox O2 Delivery O2 Flow Rate FiO2 11/23/16 12:37 61 11/23/16 12:21 98.1 18 129/59 98 11/22/16 07:32 Room Air Intake and Output 11/22/16 11/22/16 11/23/16 15:00 23:00 07:00 Intake Total 250 ml Output Total 300 ml Balance -50 ml Results Result Diagram: 11/23/16 0642 11/23/16 0642 Results 24 hrs Laboratory Tests Test 11/23/16 06:42 White Blood Count 7.9 Red Blood Count 4.45 L Hemoglobin 13.0 L Hematocrit 38.8 L Mean Corpuscular Volume 87.2 Mean Corpuscular Hemoglobin 29.2 Mean Corpuscular Hemoglobin Concent 33.5 Red Cell Distribution Width 13.6 Platelet Count 97 #L Mean Platelet Volume 9.5 Neutrophils % 85.6 H Lymphocytes % 6.9 L Monocytes % 5.9 Eosinophils % 0.9 Basophils % 0.3 Nucleated Red Blood Cells % 0.0 Neutrophils # 6.8 Lymphocytes # 0.6 L Monocytes # 0.5 Eosinophils # 0.1 Basophils # 0.0 Nucleated Red Blood Cells # 0.0 Sodium Level 132 L Potassium Level 3.8 Chloride Level 104 Carbon Dioxide Level 26 Anion Gap 6 #L Blood Urea Nitrogen 24 H Creatinine 1.01 Glucose Level 100 Calcium Level 8.0 L Magnesium Level 1.9 Total Bilirubin 1.1 Direct Bilirubin 0.00 Indirect Bilirubin 1.1 Aspartate Amino Transf (AST/SGOT) 25 Alanine Aminotransferase (ALT/SGPT) 27 Alkaline Phosphatase 40 L Total Protein 5.7 #L Albumin 3.0 #L Globulin 2.70 Albumin/Globulin Ratio 1.11 Triglycerides Level 92 Cholesterol Level 147 LDL Cholesterol, Calculated 58 HDL Cholesterol 71 Cholesterol/HDL Ratio 2.0 Thyroid Stimulating Hormone (TSH) 3.280 Medications Medications Current Medications Ondansetron HCl (Zofran Inj) 4 mg Q6H PRN IV NAUSEA AND/OR VOMITING; Start at 09:30 Aspirin (Aspirin) 81 mg DAILY PO Last administered on 11/23/16 08:55; Admin Dose 81 MG; Start 11/22/16 at 10:30 Acetaminophen (Tylenol Tab) 650 mg Q6H PRN PO PAIN LEVEL 1-3 OR FEVER; Start at 09:30 Docusate Sodium (Colace) 100 mg Q12H PRN PO CONSTIPATION; Start 11/22/16 at 09: 30 Pantoprazole (Protonix Tab) 40 mg DAILY@06 PO Last administered on 11/23/16 05 :44; Admin Dose 40 MG; Start 11/22/16 at 10:30 Enoxaparin Sodium (Lovenox) 40 mg DAILY SC Last administered on 11/23/16 08:55 ; Admin Dose 40 MG; Start 11/22/16 at 10:30 Atorvastatin Calcium (Lipitor) 40 mg QHS PO Last administered on 11/22/16 21: 12; Admin Dose 40 MG; Start 11/22/16 at 21:00 Finasteride (Proscar) 5 mg DAILY PO Last administered on 11/23/16 08:52; Admin Dose 5 MG; Start 11/22/16 at 11:30 Benazepril HCl (Lotensin) 5 mg DAILY PO ; Start 11/23/16 at 09:00 Senna (Senokot) 2 tab BID PO ; Start 11/23/16 at 14:00 BILLY HINKLE MD Nov 23, 2016 15:27
[2016-11-23] MEDS: SENNA TAB PO SCH ×2 (17:21→21:00)
[2016-11-23] MEDS ORDERED: LORAZEPAM 2 MG INJ ONE (19:22)
[2016-11-23] MEDS ORDERED: LORAZEPAM 2 MG INJ IV ONE (20:00)
[2016-11-23] MEDS ORDERED: ACETAMINOPHEN 1000MG/100ML IV 100 ML IVPB ONE (20:00)
[2016-11-23] MEDS: ATORVASTATIN 40 MG TAB PO SCH (21:00)
--- NOTE | 2016-11-23 21:01 | RADRPT ---
Vent Rate: 54 bpm RR Interval: 0 msec ND Interval: 202 msec QRS Duration: 116 msec QT Interval: 434 msec QTC Interval: 411 msec P-R-T [place]: 8 - -48 - 10 degrees Sinus bradycardia Left anterior fascicular block Left ventricular hypertrophy with QRS widening Abnormal ECG Electronically Signed By: Americo Lozano [id number]
[2016-11-24] VITALS (11 sets, daily range): BP systolic 95–158; BP diastolic 51–68; PULSE 53–73; RESP 18–19
[2016-11-24] MEDS: LEVOFLOXACIN 500MG/D5W (PMX) 100 ML IVPB SCH ×2 (00:44→20:35)
[2016-11-24] MEDS: PANTOPRAZOLE (EC) 40 MG TAB PO SCH (07:20)
--- NOTE | 2016-11-24 08:56 | PN ---
Date/Time of Note Date/Time of Note DATE: 11/24/16 TIME: 08:55 Assessment/Plan VTE Prophylaxis VTE Prophylaxis Intervention: SCD's Lines/Catheters IV Catheter Type (from [facility]): Peripheral IV Urinary Cath still in place: No Assessment/Plan Chief Complaint/Hosp Course 86-year-old male with a history of CABG, TAVR, BPH and hypothyroidism presenting to the ER for acute onset dizziness and weakness at home. His hx was obtained from his daughter but he was wiht his girlfriend at that time - he was getting out of bed to go use the restroom and felt very dizzy and weak. He started urinating on himself as he could not make it to the bathroom. He denied any chest pain, shortness of breath, vision disturbance. He felt somewhat lightheaded with some room spinning dizziness and states his legs started to feel very weak. He has not felt like this before. He denies any recent illnesses. No current chest pain, shortness of breath, fever, chills, abdominal pain, or back pain. Upon arrival to the ER, he had transient bradycardia wiht heart blokc but no sycnope ad as such, I was asked to see him in cardiac consultaiton. 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 HX OF CABG HX OF BIOAVR > S/P TAVR HX OF HEAD AND NECK CANCER HTN -The patinent with sinus bradycardia at HR 40 that was transeint wiht Second Degreee Mobitz heart block on admission - could be wenkeback vs Type 2 - no recurrence overnight and no pauses -Will monitor on tele, but no recurrence -avoid av blolockers -continue acei due to hx of CABG -unclear etiology of weakness and shakiness -no further cardaic work up necessary but elective event recorder may be ogf value Subjective 24 Hr Interval Summary Free Text/Dictation The patietn wtih shaking episoed overngith and legs still weak Exam/Review of Systems Vital Signs Vitals Vital Signs Date Time Temp Pulse Resp B/P Pulse Ox O2 Delivery O2 Flow Rate FiO2 11/24/16 07:46 98.6 59 18 158/68 99 11/23/16 23:30 Nasal Cannula 2.0 Intake and Output 11/23/16 11/23/16 11/24/16 15:00 23:00 07:00 Intake Total 480 ml Output Total 550 ml Balance -70 ml Results Result Diagram: 11/23/16 0642 11/23/16 0642 Medications Medications Current Medications Ondansetron HCl (Zofran Inj) 4 mg Q6H PRN IV NAUSEA AND/OR VOMITING; Start at 09:30 Aspirin (Aspirin) 81 mg DAILY PO Last administered on 11/23/16 08:55; Admin Dose 81 MG; Start 11/22/16 at 10:30 Acetaminophen (Tylenol Tab) 650 mg Q6H PRN PO PAIN LEVEL 1-3 OR FEVER; Start at 09:30 Docusate Sodium (Colace) 100 mg Q12H PRN PO CONSTIPATION; Start 11/22/16 at 09: 30 Pantoprazole (Protonix Tab) 40 mg DAILY@06 PO Last administered on 11/24/16 07 :20; Admin Dose 40 MG; Start 11/22/16 at 10:30 Enoxaparin Sodium (Lovenox) 40 mg DAILY SC Last administered on 11/23/16 08:55 ; Admin Dose 40 MG; Start 11/22/16 at 10:30 Atorvastatin Calcium (Lipitor) 40 mg QHS PO Last administered on 11/23/16 21: 00; Admin Dose 40 MG; Start 11/22/16 at 21:00 Finasteride (Proscar) 5 mg DAILY PO Last administered on 11/23/16 08:52; Admin Dose 5 MG; Start 11/22/16 at 11:30 Benazepril HCl (Lotensin) 5 mg DAILY PO ; Start 11/23/16 at 09:00 Senna 2 tab 2 tab BID PO Last administered on 11/23/16 21:00; Admin Dose 2 TAB ; Start 11/23/16 at 14:00 Levofloxacin/ Dextrose (Levaquin 500mg/ D5W 100 ml (Pmx)) 100 ml @ 100 mls/hr Q24H IVPB Last administered on 11/24/16 00:44; Admin Dose 100 MLS/HR; Start at 21:30 BILLY HINKLE MD Nov 24, 2016 08:56
[2016-11-24] MEDS: ASPIRIN 81 MG TAB PO SCH (09:23)
[2016-11-24] MEDS: FINASTERIDE 5 MG TAB PO SCH (09:24)
[2016-11-24] MEDS: BENAZEPRIL 5 MG TAB PO SCH (09:24)
[2016-11-24] MEDS: SENNA TAB PO SCH ×2 (09:24→20:36)
[2016-11-24] MEDS: ENOXAPARIN 40 MG/0.4 ML SYG SC SCH (09:25)
[2016-11-24] MEDS ORDERED: NA PHOSPHATE/BIPHOS 133 ML ENEMA PR PRN (12:00)
--- NOTE | 2016-11-24 12:03 | PN ---
Date/Time of Note Date/Time of Note DATE: 11/24/16 TIME: 11:54 Assessment/Plan VTE Prophylaxis VTE Prophylaxis Intervention: LMWH Lines/Catheters IV Catheter Type (from Nrs): Peripheral IV Urinary Cath still in place: No Assessment/Plan Problems: (1) Mobitz (type) II atrioventricular block Status: Resolved Comment: Per cardiology heart function and rhythm essentially normal and would be cleared to go. (2) Fever Status: Acute Comment: Low-grade spike occurring last night accompanied by rigors, chills, acute delirium. GRAZING AIDE called and hospitalist started levaquin although no source available. Will call ID consult. Qualifiers: Fever type: unspecified Qualified Code: R50.9 - Fever, unspecified fever cause (3) Generalized weakness Status: Acute Comment: Associated w/ last night's temperature spike. However, per PT pt. is not at his baseline in ambulation. No focal weakness and per PT would benefit from ARU. Once fever issue resolved, if not physically at baseline, will consider ARU eval (4) Atelectasis pulmonary Status: Acute Comment: Only possible source of fever noted. Defer to ID (5) Constipation Status: Chronic Comment: Pt. has home remedy but admits may not be enough. Fleet's enema ordered prn (6) Pure hypercholesterolemia Status: Chronic Comment: On atorvastatin (7) Gastro-esophageal reflux disease without esophagitis Status: Chronic Comment: On PPI (8) Hypothyroidism Status: Chronic Comment: On therapeutic dose LT4 Qualifiers: Hypothyroidism type: acquired Qualified Code: E03.9 - Acquired hypothyroidism (9) Enlarged prostate with lower urinary tract symptoms (LUTS) Status: Chronic Comment: On finasteride Qualifiers: Prostatic enlargement morphology: unspecified morphology Qualified Code: N40.1 - Benign prostatic hyperplasia with lower urinary tract symptoms, unspecified morphology Subjective 24 Hr Interval Summary Constitutional: improved, no complaints Respiratory: no complaints Cardiovascular: no complaints Gastrointestinal: constipation Genitourinary: no complaints Musculoskeletal: no complaints Neurologic: no complaints Exam/Review of Systems Vital Signs Vitals VS - Last 72 Hours, by Label Date Time Temp Pulse Resp B/P Pulse Ox O2 Delivery O2 Flow Rate FiO2 11/24/16 11:49 97.9 63 19 116/62 98 11/24/16 09:03 59 11/24/16 07:46 98.6 59 18 158/68 99 11/24/16 05:09 66 11/24/16 04:44 55 11/24/16 00:26 73 11/23/16 23:30 97.4 75 20 107/55 100 Nasal Cannula 2.0 11/23/16 20:32 107 11/23/16 20:00 Nasal Cannula 2.0 11/23/16 20:00 100.4 110 20 120/62 95 Nasal Cannula 2.0 11/23/16 19:37 120 11/23/16 19:24 128 11/23/16 16:44 66 11/23/16 16:03 98.0 64 18 121/61 99 11/23/16 15:40 66 11/23/16 12:37 61 11/23/16 12:21 98.1 58 18 129/59 98 11/23/16 08:37 57 11/23/16 08:07 97.9 56 18 121/59 96 11/23/16 04:30 58 11/23/16 03:50 98.3 60 16 108/55 96 11/23/16 00:43 98.3 58 16 124/59 98 11/23/16 00:27 56 11/22/16 22:50 48 11/22/16 20:37 72 11/22/16 20:34 98.2 66 16 118/55 95 11/22/16 16:19 74 11/22/16 15:49 100.6 71 18 133/61 94 11/22/16 12:15 68 11/22/16 11:33 98.2 78 18 118/57 95 11/22/16 08:16 82 11/22/16 07:57 98.0 85 18 123/58 93 11/22/16 07:32 99.4 83 20 134/69 98 Room Air 11/22/16 06:40 100.5 85 18 130/78 95 Room Air 11/22/16 05:40 100.3 83 20 138/58 100 Room Air 11/22/16 04:38 101.3 89 18 147/64 96 11/22/16 03:34 99.3 90 177/78 11/22/16 03:08 84 26 177/78 98 Vital Signs Date Time Temp Pulse Resp B/P Pulse Ox O2 Delivery O2 Flow Rate FiO2 11/24/16 11:49 97.9 63 19 116/62 98 4/14/17 23:30 Nasal Cannula 2.0 Intake and Output 11/23/16 11/23/16 11/24/16 15:00 23:00 07:00 Intake Total 480 ml Output Total 550 ml Balance -70 ml Exam Constitutional: alert, oriented, well developed Psych: nl mood/affect, no complaints Respiratory: clear to auscultation, normal air movement Cardiovascular: nl pulses, regular rate and rhythm, No edema, No murmurs/extra sounds, No rub Gastrointestinal: bowel sounds, nl liver, spleen, non-tender, soft, No mass, No rebound or guarding Musculoskeletal: nl extremities to inspection Extremities: normal pulses, No clubbing, No cyanosis, No edema Neurological: INTERACTIVE VIDEO TECHNICIAN II-XII intact, nl mental status, nl speech, nl strength Results Result Diagram: 11/23/1642 11/23/16 0642 Medications Medications Current Medications Ondansetron HCl (Zofran Inj) 4 mg Q6H PRN IV NAUSEA AND/OR VOMITING; Start at 09:30 Aspirin (Aspirin) 81 mg DAILY PO Last administered on 11/24/16 09:23; Admin Dose 81 MG; Start 11/22/16 at 10:30 Acetaminophen (Tylenol Tab) 650 mg Q6H PRN PO PAIN LEVEL 1-3 OR FEVER; Start at 09:30 Docusate Sodium (Colace) 100 mg Q12H PRN PO CONSTIPATION; Start 11/22/16 at 09: 30 Pantoprazole (Protonix Tab) 40 mg DAILY@06 PO Last administered on 11/24/16 07 :20; Admin Dose 40 MG; Start 11/22/16 at 10:30 Enoxaparin Sodium (Lovenox) 40 mg DAILY SC Last administered on 11/24/16 09:25 ; Admin Dose 40 MG; Start 11/22/16 at 10:30 Atorvastatin Calcium (Lipitor) 40 mg QHS PO Last administered on 11/23/16 21: 00; Admin Dose 40 MG; Start 11/22/16 at 21:00 Finasteride (Proscar) 5 mg DAILY PO Last administered on 11/24/16 09:24; Admin Dose 5 MG; Start 11/22/16 at 11:30 Benazepril HCl (Lotensin) 5 mg DAILY PO Last administered on 11/24/16 09:24; Admin Dose 5 MG; Start 11/23/16 at 09:00 Senna 2 tab 2 tab BID PO Last administered on 11/24/16 09:24; Admin Dose 2 TAB ; Start 11/23/16 at 14:00 Levofloxacin/ Dextrose (Levaquin 500mg/ D5W 100 ml (Pmx)) 100 ml @ 100 mls/hr Q24H IVPB Last administered on 11/24/16 00:44; Admin Dose 100 MLS/HR; Start at 21:30 MAKAYLA RAMIREZ MD Nov 24, 2016 12:03
--- NOTE | 2016-11-24 14:03 | CONS ---
Date/Time of Note Date/Time of Note DATE: 11/24/16 TIME: 14:01 Assessment/Plan Assessment/Plan Chief Complaint/Hosp Course assessment/impression - recurrent fever and chills. Differential diagnoses include infective endocarditis (prosthetic valve, and dental works), prostatitis (BRH, "acid sensation" with urination off and on for a long time), cholecystitis (a small gallstone). Chronic type of pneumonia (density in L lung) is a consideration but according to Pt and his daughter, he had an ablative procedure to a lung years ago, and this could be just a scar. - s/p CABG, TAVR - a small gallstone - density in L lung - BRH, intermittent dysuria - hypothyroidism Given the differential diagnoses above, I recommend the followings: - blood cultures were repeated. I will review the results - I recommend transthoracic echo if not done yet. Ideally transesophageal echo if it is technically possible in this Pt who had XRT to the neck and ?cancer resection. - repeat urinalysis and urine culture (ordered) - abdominal ultrasound to r/o cholecystitis - I instructed Pt's daughter and girlfriend to bring his previous chest CT for comparison - will order cocci serology - Pt's currently on levofloxacin - OK to continue for now management d/w Pt, his girlfriend, daughter, another family and RN. Called Dr. Mazariegos too. Problems: Consultation Date/Type/Reason Admit Date/Time Nov 22, 2016 at 06:14 Date of Consultation: Nov 24, 2016 Type of Consultation: ID Referring Provider: MAKAYLA MAZARIEGOS MD Hx of Present Illness This is an 86 yo male with h/o CAD s/p CABG, TAVR, laryngeal CA s/p XRT and BPH. Pt was admitted on 11/22/2016 due to weakness, shaking chills and fever. He was in sinus bradycardia with heart block. Head CT did not show acute intra- cranial process. The initial ID workup (blood and urine cultures) were negative. He was about to go home; then had recurrent shaking chills and fever. From ID standpoint, his history of last 2 years is significant for: broken tooth , route canal, dental cleaning, fitting of partial dentures - cleaning and denture were done in the last 2 months with amoxicillin prophylaxis. He had a few episodes of epistaxis. He has had "acid sensation" upon urination off and on for a long time. Immediately prior to admission, however, he denies sinus pain, rhinorrhea, URI symptoms, GI/ symptoms. Dr. Mazariegos requested ID consultation on this Pt. Constitutional: chills, febrile, other (weakness), poor po, No diaphoresis Eyes: no complaints ENT: dysphagia, other (epistaxis) Respiratory: no complaints Cardiovascular: no complaints Gastrointestinal: constipation Genitourinary: other ("acid sensation" when he urinates off and on for a long time) Musculoskeletal: no complaints Skin: no complaints Neurologic: No confusion Endocrine: no complaints Psychological: no complaints Past Medical History Medical History: cancer (laryngeal), coronary artery disease, GERD, high cholesterol, hypothyroid, other (BPH, aortic valve disease) Past Surgical History Past Surgical Hx: coronary bypass surgery, other (aortic valve replacement x 2) Social History Alcohol Use: occasionally Smoking Status: Former smoker (small amount in youth) Drug Use: none Exam/Review of Systems Vital Signs Vitals Vital Signs Date Time Temp Pulse Resp B/P Pulse Ox O2 Delivery O2 Flow Rate FiO2 11/24/16 12:07 60 11/24/16 11:49 97.9 19 116/62 98 11/23/16 23:30 Nasal Cannula 2.0 Intake and Output 11/23/16 11/23/16 11/24/16 15:00 23:00 07:00 Intake Total 480 ml Output Total 550 ml Balance -70 ml Exam Constitutional: frail Psych: no complaints Head: atraumatic, normocephalic Eyes: nl conjunctiva, nl lids ENMT: nl external ears & nose, nl nasal mucosa & septum, other (sinuses are non -TTP b/l) Neck: supple Respiratory: clear to auscultation, normal air movement Cardiovascular: nl pulses, regular rate and rhythm Gastrointestinal: distended, non-tender, other (No Charles's sign), soft Musculoskeletal: nl extremities to inspection Extremities: normal pulses Neurological: HOSPITALIST NOCTURNIST PHYSICIAN II-XII intact, nl mental status, nl speech Skin: nl turgor Results Result Diagram: 11/23/16 0642 11/23/16 0642 Medications Medications Current Medications Ondansetron HCl (Zofran Inj) 4 mg Q6H PRN IV NAUSEA AND/OR VOMITING; Start at 09:30 Aspirin (Aspirin) 81 mg DAILY PO Last administered on 11/24/16 09:23; Admin Dose 81 MG; Start 11/22/16 at 10:30 Acetaminophen (Tylenol Tab) 650 mg Q6H PRN PO PAIN LEVEL 1-3 OR FEVER; Start at 09:30 Docusate Sodium (Colace) 100 mg Q12H PRN PO CONSTIPATION; Start 11/22/16 at 09: 30 Pantoprazole (Protonix Tab) 40 mg DAILY@06 PO Last administered on 11/24/16 07 :20; Admin Dose 40 MG; Start 11/22/16 at 10:30 Enoxaparin Sodium (Lovenox) 40 mg DAILY SC Last administered on 11/24/16 09:25 ; Admin Dose 40 MG; Start 11/22/16 at 10:30 Atorvastatin Calcium (Lipitor) 40 mg QHS PO Last administered on 11/23/16 21: 00; Admin Dose 40 MG; Start 11/22/16 at 21:00 Finasteride (Proscar) 5 mg DAILY PO Last administered on 11/24/16 09:24; Admin Dose 5 MG; Start 11/22/16 at 11:30 Benazepril HCl (Lotensin) 5 mg DAILY PO Last administered on 11/24/16 09:24; Admin Dose 5 MG; Start 11/23/16 at 09:00 Senna 2 tab 2 tab BID PO Last administered on 11/24/16 09:24; Admin Dose 2 TAB ; Start 11/23/16 at 14:00 Levofloxacin/ Dextrose (Levaquin 500mg/ D5W 100 ml (Pmx)) 100 ml @ 100 mls/hr Q24H IVPB Last administered on 11/24/16 00:44; Admin Dose 100 MLS/HR; Start at 21:30 Sodium Biphosphate/ Sodium Phosphate (Fleet Enema) 133 ml DAILY PRN [place] CONSTIPATION; Start 11/24/16 at 12:00 GEORGE BELCHER M.D. Nov 24, 2016 14:03
--- NOTE | 2016-11-24 20:28 | RADRPT ---
PROCEDURE: US abdomen limited right upper quadrant. CLINICAL INDICATION: Abdominal pain fever of unknown origin rule out acute cholecystitis TECHNIQUE: Multiple real-time images were acquired of the patient's right upper quadrant of the [facility] utilizing a high resolution transducer. COMPARISON: CT abdomen of 11/22/2016 FINDINGS: Gallbladder wall thickness at upper limit of normal of 3 mm. No pericholecystic fluid is seen. No s hadowing calculus is seen in the gallbladder. There is a 6 mm nonmobile oval area of increased echo genicity immediately adjacent to the inner gallbladder wall which could represent a polyp.. The common bile duct measures 4.1 mm in maximal dimension. No free fluid is identified. No abnormality is seen in the liver. There is limited visualization of the left lobe of the liver due to bowel gas. The pancreas is not seen due to bowel gas. The right k idney measures 9.4 cm in length and is unremarkable. IMPRESSION: Pancreas not seen. Limited visualization of left lobe of liver. Gallbladder wall thickness at upper limit of normal. Possible 6 mm gallbladder polyp as noted above. There is no specific evidence of a cute cholecystitis seen. Please see above. RPTAT: HJES .Kennedy Coreas MD, MD Date Time Electronically viewed and signed by .Kennedy Coreas MD, on 11/24/2016 20:28 .S/
[2016-11-24] MEDS: ATORVASTATIN 40 MG TAB PO SCH (20:35)
[2016-11-24] MEDS ORDERED: LEVOFLOXACIN 500 MG TAB PO SCH ×2 (21:30→22:00)
[2016-11-25] VITALS (13 sets, daily range): BP systolic 110–133; BP diastolic 57–70; PULSE 57–83; RESP 16–19
[2016-11-25] MEDS: PANTOPRAZOLE (EC) 40 MG TAB PO SCH (06:10)
[2016-11-25] MEDS: LEVOTHYROXINE 50 MCG TAB PO SCH (06:10)
[2016-11-25 07:36] LABS: ADD SCAN DIFF NO
[2016-11-25 07:40] LABS: ABNORMAL IP MESSAGE 1; BASOPHILS % 0.3 % (0.0-2.0); EOSINOPHILS # 0.2 10^3/ul (0.0-0.5); EOSINOPHILS % 2.6 % (0.0-7.0); HEMATOCRIT 38.4 % (42.0-52.0); HEMOGLOBIN 12.9 g/dl (14.0-18.0); LYMPHOCYTES # 0.7 10^3/ul (0.8-2.9); LYMPHOCYTES % 12.3 % (15.0-51.0); MEAN CORPUSCULAR HGB CONC 33.6 g/dl (32.0-37.0); MEAN CORPUSCULAR VOLUME 86.3 fl (82.0-101.0); MEAN PLATELET VOLUME 10.1 fl (7.4-10.4); MONOCYTE # 0.8 10^3/ul (0.3-0.9); NEUTROPHIL # 4.1 10^3/ul (1.6-7.5); NEUTROPHILS % 71.5 % (39.0-77.0); PLATELET COUNT 84 10^3/UL (140-415); RED BLOOD COUNT 4.45 10^6/ul (4.70-6.10); RED CELL DISTRIBUTION WIDTH 13.6 % (11.5-14.5); WHITE BLOOD COUNT 5.8 10^3/ul (4.8-10.8)
[2016-11-25 08:12] LABS: POTASSIUM 3.6 mmol/L (3.5-5.1)
[2016-11-25 08:15] LABS: CALCIUM 8.4 mg/dl (8.4-10.2); CREATININE 0.99 mg/dl (0.61-1.24)
[2016-11-25] MEDS: SENNA TAB PO SCH ×2 (08:45→21:00)
[2016-11-25] MEDS: ASPIRIN 81 MG TAB PO SCH (08:45)
[2016-11-25] MEDS: FINASTERIDE 5 MG TAB PO SCH (08:45)
[2016-11-25] MEDS: BENAZEPRIL 5 MG TAB PO SCH (08:46)
[2016-11-25] MEDS: LEVOFLOXACIN 500 MG TAB PO SCH (08:48)
[2016-11-25] MEDS: ENOXAPARIN 40 MG/0.4 ML SYG SC SCH (08:49)
--- NOTE | 2016-11-25 11:20 | RADRPT ---
Echocardiogram Report Patient Name: CANDI RODGERS Gender: Male Date: 1930 Study Date: 22-Nov-2016 Hematology Nurse Educator: Isa Looney [facility] [[email or web address]] Location: 5565 Ref. Physician: BILLY TURK Quality: Good Procedures: Transthoracic echocardiogram with complete 2D, M-Mode, and doppler examination. Indications: Congestive Heart Failure. 2D/M Mode Doppler Measurement Value Normal Ranges Measurement Value Normal Ranges LVIDd 2D 4.6 3.5 - 5.6 cm AV Mean Jeremy 2.6 m/sec LVIDs 2D 2.4 2.1 - 4.1 cm AV Mean PG 28.0 mmHg LVPWd 2D 1.0 0.6 - 1.1 cm AV Peak Jeremy 3.3 m/sec IVSd 2D 0.9 0.6 - 1.1 cm AV Peak PG 44.3 mmHg AoR Diam 2D 2.3 2.0 - 3.7 cm AV VTI 70.5 cm EDV 2D 97.1 cm3 LVOT Mean Jeremy 1.5 m/sec ESV 2D 13.6 cm3 LVOT Mean PG 9.9 mmHg LA Dimen 2D 4.4 2.3 - 4.0 cm LVOT Peak Jeremy 2.0 m/sec LVOT Peak PG 15.9 mmHg LVOT VTI 40.1 cm MV E Peak Jeremy 1.0 m/sec MV A Peak Jeremy 1.1 m/sec MV E/A 0.9 MV Decel Time 174 msec MV Decel [place] 6 MV E/A 0.9 TR Peak Jeremy 2.5 m/sec TR Peak PG 25.5 mmHg RVSP 29.0 mmHg Findings Left Ventricle: Normal left ventricular systolic function. Normal left ventricular cavity size. Normal left ventricular wall thickness. Ejection fraction is visually estimated at 65 %. Tissue Doppler/Mitral Doppler indices are consistent with impaired relaxation (Stage I diastolic dysfunction). Right Ventricle: Normal right ventricular size. Normal right ventricular systolic function. Left Atrium: There is mild enlargement of left atrium. Right Atrium: The right atrium is normal in size. Mitral Valve: Mitral valve leaflets appear mildly thickened. Mild mitral annular calcification. Mild mitral valve regurgitation. Aortic Valve: Transcatheter Aortic Valve Replacement. Aortic valve Max velocity 3.33 m/sec. Max PG 44.00 mmHg. Mean PG 28.00 mmHg. No aortic regurgitation. Tricuspid Valve: Normal appearance of the tricuspid valve. Estimated peak PA systolic pressure 29 mmHg. There is mild tricuspid regurgitation. Pulmonic Valve: Normal pulmonic valve appearance. There is trace pulmonic regurgitation. Pericardium: Normal pericardium with no significant pericardial effusion. Aorta: Normal aortic root. IVC: The IVC is not well visualized. Conclusions 1.Normal left ventricular systolic function. Normal left ventricular cavity size. Normal left ventricular wall thickness. Ejection fraction is visually estimated at 65 %. Tissue Doppler/Mitral Doppler indices are consistent with impaired relaxation (Stage I diastolic dysfunction). 2.The right atrium is normal in size. 3.Mitral valve leaflets appear mildly thickened. Mild mitral annular calcification. Mild mitral valve regurgitation. 4.Transcatheter Aortic Valve Replacement. Aortic valve Max velocity 3.33 m/sec. Max PG 44.00 mmHg. Mean PG 28.00 mmHg. No aortic regurgitation. 5.Normal appearance of the tricuspid valve. Estimated peak PA systolic pressure 29 mmHg. There is mild tricuspid regurgitation. 6.Normal pulmonic valve appearance. There is trace pulmonic regurgitation. 7.Normal pericardium with no significant pericardial effusion. 8.Normal right ventricular size. Normal right ventricular systolic function. 9.Normal aortic root. Electronically Signed By: Billy Turk 25-Nov-2016 11:19:51 -0700 Patient Name: CANDI RODGERS Study Date: 22-Nov-2016 [id number]
--- NOTE | 2016-11-25 11:42 | PN ---
Date/Time of Note Date/Time of Note DATE: 11/25/16 TIME: 11:35 Assessment/Plan VTE Prophylaxis VTE Prophylaxis Intervention: LMWH Lines/Catheters IV [facility]from [facility] [place] Lock Urinary Cath still in place: No Assessment/Plan Problems: (1) Fever Status: Acute Comment: Appreciate ID consult. Per ID differential diagnosis includes asymptomatic prostatitis, chronic PNA, chronic cholecystitis, or infective endocarditis. Per cardiology prosthetic aortic valve appears very clean and is well-imaged. Hopefully, GIULIA will not be necessary as this might be difficult study based on h/o XRT to neck. Pt. on levofloxacin since last febrile episode and since then has been afebrile; this would certainly treat a prostate issue. BANDAR Mcknight. Dr. Hilton to review old lung films and also ordered cocci studies. Defer to her expertise. Qualifiers: Fever type: unspecified Qualified Code: R50.9 - Fever, unspecified fever cause (2) Generalized weakness Status: Acute Comment: Possibly associated w/ whatever is causing fevers. Cont. PT. May need ARU when done. (3) Constipation Status: Chronic Comment: Ok to take home remedy med for constipation (4) Pure hypercholesterolemia Status: Chronic Comment: Cont. statin (5) Gastro-esophageal reflux disease without esophagitis Status: Chronic Comment: Cont. PPI (6) Hypothyroidism Status: Chronic Comment: Cont. LT4 Qualifiers: Hypothyroidism type: acquired Qualified Code: E03.9 - Acquired hypothyroidism (7) Enlarged prostate with lower urinary tract symptoms (LUTS) Status: Chronic Comment: Cont. finasteride Qualifiers: Prostatic enlargement morphology: unspecified morphology Qualified Code: N40.1 - Benign prostatic hyperplasia with lower urinary tract symptoms, unspecified morphology Subjective 24 Hr Interval Summary Constitutional: improved, no complaints Respiratory: no complaints Cardiovascular: no complaints Gastrointestinal: constipation (pt. w/ herbal remedy he likes to take 2 pills three times/day to be able to have regular BM) Genitourinary: no complaints Musculoskeletal: no complaints Neurologic: no complaints Exam/Review of Systems Vital Signs Vitals VS - Last 72 Hours, by Label Date Time Temp Pulse Resp B/P Pulse Ox O2 Delivery O2 Flow Rate FiO2 11/25/16 08:14 82 11/25/16 07:39 98.2 63 18 126/60 98 11/25/16 04:31 97.8 58 18 130/62 98 11/25/16 04:21 66 11/25/16 00:10 57 11/25/16 00:08 97.7 59 16 115/64 97 11/24/16 20:09 53 11/24/16 20:02 97.5 53 18 104/59 97 11/24/16 19:37 Nasal Cannula 2.0 11/24/16 16:36 97.7 63 18 95/51 96 11/24/16 16:05 66 11/24/16 16:05 66 11/24/16 12:07 60 11/24/16 11:49 97.9 63 19 116/62 98 11/24/16 09:03 59 11/24/16 08:30 Nasal Cannula 2.0 11/24/16 07:46 98.6 59 18 158/68 99 11/24/16 05:09 66 11/24/16 04:44 55 11/24/16 00:26 73 11/23/16 23:30 97.4 75 20 107/55 100 Nasal Cannula 2.0 11/23/16 20:32 107 11/23/16 20:00 Nasal Cannula 2.0 11/23/16 20:00 100.4 110 20 120/62 95 Nasal Cannula 2.0 11/23/16 19:37 120 11/23/16 19:24 128 11/23/16 16:44 66 11/23/16 16:03 98.0 64 18 121/61 99 11/23/16 15:40 66 11/23/16 12:37 61 11/23/16 12:21 98.1 58 18 129/59 98 11/23/16 08:37 57 11/23/16 08:07 97.9 56 18 121/59 96 11/23/16 04:30 58 11/23/16 03:50 98.3 60 16 108/55 96 11/23/16 00:43 98.3 58 16 124/59 98 11/23/16 00:27 56 11/22/16 22:50 48 11/22/16 20:37 72 11/22/16 20:34 98.2 66 16 118/55 95 11/22/16 16:19 74 11/22/16 15:49 100.6 71 18 133/61 94 11/22/16 12:15 68 Vital Signs Date Time Temp Pulse Resp B/P Pulse Ox O2 Delivery O2 Flow Rate FiO2 11/25/16 08:14 82 11/25/16 07:39 98.2 18 126/60 98 11/24/16 19:37 Nasal Cannula 2.0 Intake and Output 11/24/16 11/24/16 11/25/16 15:00 23:00 07:00 Intake Total 720 ml 450 ml Output Total 600 ml 500 ml Balance 120 ml -50 ml Exam Constitutional: alert, oriented, well developed Psych: nl mood/affect, no complaints Respiratory: clear to auscultation, normal air movement Cardiovascular: nl pulses, regular rate and rhythm, No edema, No murmurs/extra sounds, No rub Gastrointestinal: bowel sounds, nl liver, spleen, non-tender, soft, No mass, No rebound or guarding Musculoskeletal: nl extremities to inspection Extremities: normal pulses, No clubbing, No cyanosis, No edema Neurological: MANAGER RELIABILITY II-XII intact, nl mental status, nl speech, nl strength Results Result Diagram: 11/25/16 0635 11/25/16 0635 Results 24 hrs Laboratory Tests Test 11/25/16 06:35 White Blood Count 5.8 # Red Blood Count 4.45 L Hemoglobin 12.9 L Hematocrit 38.4 L Mean Corpuscular Volume 86.3 Mean Corpuscular Hemoglobin 29.0 Mean Corpuscular Hemoglobin Concent 33.6 Red Cell Distribution Width 13.6 Platelet Count 84 L Mean Platelet Volume 10.1 Neutrophils % 71.5 Lymphocytes % 12.3 L Monocytes % 13.0 H Eosinophils % 2.6 Basophils % 0.3 Nucleated Red Blood Cells % 0.0 Neutrophils # 4.1 Lymphocytes # 0.7 L Monocytes # 0.8 Eosinophils # 0.2 Basophils # 0.0 Nucleated Red Blood Cells # 0.0 Sodium Level 137 Potassium Level 3.6 Chloride Level 102 Carbon Dioxide Level 25 Anion Gap 14 # Blood Urea Nitrogen 25 H Creatinine 0.99 Glucose Level 90 Calcium Level 8.4 Medications Medications Current Medications Ondansetron HCl (Zofran Inj) 4 mg Q6H PRN IV NAUSEA AND/OR VOMITING; Start at 09:30 Aspirin (Aspirin) 81 mg DAILY PO Last administered on 11/25/16t 08:45; Admin Dose 81 MG; Start 11/22/16 at 10:30 Acetaminophen (Tylenol Tab) 650 mg Q6H PRN PO PAIN LEVEL 1-3 OR FEVER; Start at 09:30 Docusate Sodium (Colace) 100 mg Q12H PRN PO CONSTIPATION Last administered on 08:45; Admin Dose 100 MG; Start 11/22/16 at 09:30 Pantoprazole (Protonix Tab) 40 mg DAILY@06 PO Last administered on 11/25/16 06 :10; Admin Dose 40 MG; Start 11/22/16 at 10:30 Enoxaparin Sodium (Lovenox) 40 mg DAILY SC Last administered on 11/25/16 08:49 ; Admin Dose 40 MG; Start 11/22/16 at 10:30 Atorvastatin Calcium (Lipitor) 40 mg QHS PO Last administered on 11/24/16 20: 35; Admin Dose 40 MG; Start 11/22/16 at 21:00 Finasteride (Proscar) 5 mg DAILY PO Last administered on 11/25/16 08:45; Admin Dose 5 MG; Start 11/22/16 at 11:30 Benazepril HCl (Lotensin) 5 mg DAILY PO Last administered on 11/25/16 08:46; Admin Dose 5 MG; Start 11/23/16 at 09:00 Senna (Senokot) 2 tab BID PO Last administered on 11/25/16 08:45; Admin Dose 2 TAB; Start 11/23/16 at 14:00 Sodium Biphosphate/ Sodium Phosphate (Fleet Enema) 133 ml DAILY PRN [place] CONSTIPATION Last administered on 11/25/16 08:48; Admin Dose 133 ML; Start at 12:00 Levofloxacin (Levaquin) 500 mg DAILY PO Last administered on 11/25/16 08:48; Admin Dose 500 MG; Start 11/25/16 at 09:00 MAKAYLA RAMIREZ MD Nov 25, 2016 11:42
--- NOTE | 2016-11-25 11:44 | PN ---
Date/Time of Note Date/Time of Note DATE: 11/25/16 TIME: 11:42 Assessment/Plan VTE Prophylaxis VTE Prophylaxis Intervention: SCD's Lines/Catheters IV C[facility]ter Type (from [facility] Urinary Cath still in place: No Assessment/Plan Chief Complaint/Hosp Course 86-year-old male with a history of CABG, TAVR, BPH and hypothyroidism presenting to the ER for acute onset dizziness and weakness at home. His hx was obtained from his daughter but he was wiht his girlfriend at that time - he was getting out of bed to go use the restroom and felt very dizzy and weak. He started urinating on himself as he could not make it to the bathroom. He denied any chest pain, shortness of breath, vision disturbance. He felt somewhat lightheaded with some room spinning dizziness and states his legs started to feel very weak. He has not felt like this before. He denies any recent illnesses. No current chest pain, shortness of breath, fever, chills, abdominal pain, or back pain. Upon arrival to the ER, he had transient bradycardia wiht heart blokc but no sycnope ad as such, I was asked to see him in cardiac consultaiton. 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 HX OF CABG HX OF BIOAVR > S/P TAVR HX OF HEAD AND NECK CANCER HTN -The patinent with sinus bradycardia at HR 40 that was transeint wiht Second Degreee Mobitz heart block on admission - could be wenkeback vs Type 2 - no recurrence overnight and no pauses -Will monitor on tele, but no recurrence -avoid av blolockers -continue acei due to hx of CABG -unclear etiology of weakness and shakiness ?prsotatits -the patient with no peristent fevers, leukocytosis or persitent bacteremia wiht echo being a good study and no vegettions - given hx of Head&Neck CA. no GIULIA at this time necessary and discussed with ID service . Dr ornelas and patient -no further cardaic work up necessary but elective event recorder may be ogf value Subjective 24 Hr Interval Summary Free Text/Dictation The patient with no cahgne and slightly better Exam/Review of Systems Vital Signs Vitals Vital Signs Date Time Temp Pulse Resp B/P Pulse Ox O2 Delivery O2 Flow Rate FiO2 11/25/16 08:14 82 11/25/16 07:39 98.2 18 126/60 98 11/24/16 19:37 Nasal Cannula 2.0 Intake and Output 11/24/16 11/24/16 11/25/16 15:00 23:00 07:00 Intake Total 720 ml 450 ml Output Total 600 ml 500 ml Balance 120 ml -50 ml Results Result Diagram: 11/25/16 0635 11/25/16 0635 Results 24 hrs Laboratory Tests Test 11/25/16 06:35 White Blood Count 5.8 # Red Blood Count 4.45 L Hemoglobin 12.9 L Hematocrit 38.4 L Mean Corpuscular Volume 86.3 Mean Corpuscular Hemoglobin 29.0 Mean Corpuscular Hemoglobin Concent 33.6 Red Cell Distribution Width 13.6 Platelet Count 84 L Mean Platelet Volume 10.1 Neutrophils % 71.5 Lymphocytes % 12.3 L Monocytes % 13.0 H Eosinophils % 2.6 Basophils % 0.3 Nucleated Red Blood Cells % 0.0 Neutrophils # 4.1 Lymphocytes # 0.7 L Monocytes # 0.8 Eosinophils # 0.2 Basophils # 0.0 Nucleated Red Blood Cells # 0.0 Sodium Level 137 Potassium Level 3.6 Chloride Level 102 Carbon Dioxide Level 25 Anion Gap 14 # Blood Urea Nitrogen 25 H Creatinine 0.99 Glucose Level 90 Calcium Level 8.4 Medications Medications Current Medications Ondansetron HCl (Zofran Inj) 4 mg Q6H PRN IV NAUSEA AND/OR VOMITING; Start at 09:30 Aspirin (Aspirin) 81 mg DAILY PO Last administered on 11/25/16 08:45; Admin Dose 81 MG; Start 11/22/16 at 10:30 Acetaminophen (Tylenol Tab) 650 mg Q6H PRN PO PAIN LEVEL 1-3 OR FEVER; Start at 09:30 Docusate Sodium (Colace) 100 mg Q12H PRN PO CONSTIPATION Last administered on 08:45; Admin Dose 100 MG; Start 11/22/16 at 09:30 Pantoprazole (Protonix Tab) 40 mg DAILY@06 PO Last administered on 11/25/16 06 :10; Admin Dose 40 MG; Start 11/22/16 at 10:30 Enoxaparin Sodium (Lovenox) 40 mg DAILY SC Last administered on 11/25/16 08:49 ; Admin Dose 40 MG; Start 11/22/16 at 10:30 Atorvastatin Calcium (Lipitor) 40 mg QHS PO Last administered on 11/24/16 20: 35; Admin Dose 40 MG; Start 11/22/16 at 21:00 Finasteride (Proscar) 5 mg DAILY PO Last administered on 11/25/16 08:45; Admin Dose 5 MG; Start 11/22/16 at 11:30 Benazepril HCl (Lotensin) 5 mg DAILY PO Last administered on 11/25/16 08:46; Admin Dose 5 MG; Start 11/23/16 at 09:00 Senna (Senokot) 2 tab BID PO Last administered on 11/25/16 08:45; Admin Dose 2 TAB; Start 11/23/16 at 14:00 Sodium Biphosphate/ Sodium Phosphate (Fleet Enema) 133 ml DAILY PRN [place] CONSTIPATION Last administered on 11/25/16 08:48; Admin Dose 133 ML; Start at 12:00 Levofloxacin (Levaquin) 500 mg DAILY PO Last administered on 11/25/16 08:48; Admin Dose 500 MG; Start 11/25/16 at 09:00 BILLY HINKLE MD Nov 25, 2016 11:43
[2016-11-25] MEDS: ATORVASTATIN 40 MG TAB PO SCH (21:04)
--- NOTE | 2016-11-25 22:50 | CONS ---
Date/Time of Note Date/Time of Note DATE: 11/25/16 TIME: 22:42 Consult Date/Type/Reason Admit Date/Time Nov 22, 2016 at 06:14 Initial Consult Date 11/24/16 Type of Consultation: ID Ordering Provider: MAKAYLA RAMIREZ MD Objective Vital Signs Date Time Temp Pulse Resp B/P Pulse Ox O2 Delivery O2 Flow Rate FiO2 11/25/16 21:49 Nasal Cannula 2.0 11/25/16 20:19 73 11/25/16 19:42 97.7 16 114/57 96 Intake and Output 11/24/16 11/24/16 11/25/16 15:00 23:00 07:00 Intake Total 720 ml 450 ml Output Total 600 ml 500 ml Balance 120 ml -50 ml Exam NAD anicteric sclera supple neck lungs CTA b/l RRR without murmurs abdomen is soft NT ND Results/Medications Result Diagram: 11/25/16 0635 11/25/16 0635 Results 24 hrs Laboratory Tests Test 11/25/16 06:35 White Blood Count 5.8 # Red Blood Count 4.45 L Hemoglobin 12.9 L Hematocrit 38.4 L Mean Corpuscular Volume 86.3 Mean Corpuscular Hemoglobin 29.0 Mean Corpuscular Hemoglobin Concent 33.6 Red Cell Distribution Width 13.6 Platelet Count 84 L Mean Platelet Volume 10.1 Neutrophils % 71.5 Lymphocytes % 12.3 L Monocytes % 13.0 H Eosinophils % 2.6 Basophils % 0.3 Nucleated Red Blood Cells % 0.0 Neutrophils # 4.1 Lymphocytes # 0.7 L Monocytes # 0.8 Eosinophils # 0.2 Basophils # 0.0 Nucleated Red Blood Cells # 0.0 Sodium Level 137 Potassium Level 3.6 Chloride Level 102 Carbon Dioxide Level 25 Anion Gap 14 # Blood Urea Nitrogen 25 H Creatinine 0.99 Glucose Level 90 Calcium Level 8.4 Medications Current Medications Ondansetron HCl (Zofran Inj) 4 mg Q6H PRN IV NAUSEA AND/OR VOMITING; Start at 09:30 Aspirin (Aspirin) 81 mg DAILY PO Last administered on 11/25/16t 08:45; Admin Dose 81 MG; Start 11/22/16 at 10:30 Acetaminophen (Tylenol Tab) 650 mg Q6H PRN PO PAIN LEVEL 1-3 OR FEVER; Start at 09:30 Docusate Sodium (Colace) 100 mg Q12H PRN PO CONSTIPATION Last administered on 08:45; Admin Dose 100 MG; Start 11/22/16 at 09:30 Pantoprazole (Protonix Tab) 40 mg DAILY@06 PO Last administered on 11/25/16 06 :10; Admin Dose 40 MG; Start 11/22/16 at 10:30 Enoxaparin Sodium (Lovenox) 40 mg DAILY SC Last administered on 11/25/16 08:49 ; Admin Dose 40 MG; Start 11/22/16 at 10:30 Atorvastatin Calcium (Lipitor) 40 mg QHS PO Last administered on 11/25/16 21: 04; Admin Dose 40 MG; Start 11/22/16 at 21:00 Finasteride (Proscar) 5 mg DAILY PO Last administered on 11/25/16 08:45; Admin Dose 5 MG; Start 11/22/16 at 11:30 Benazepril HCl (Lotensin) 5 mg DAILY PO Last administered on 11/25/16 08:46; Admin Dose 5 MG; Start 11/23/16 at 09:00 Senna (Senokot) 2 tab BID PO Last administered on 11/25/16 08:45; Admin Dose 2 TAB; Start 11/23/16 at 14:00 Sodium Biphosphate/ Sodium Phosphate (Fleet Enema) 133 ml DAILY PRN [place] CONSTIPATION Last administered on 11/25/16 08:48; Admin Dose 133 ML; Start at 12:00 Levofloxacin (Levaquin) 500 mg DAILY PO Last administered on 11/25/16 08:48; Admin Dose 500 MG; Start 11/25/16 at 09:00 Miscellaneous Information (* Miscellaneous Pharmacy Order) 2 ea TID PO ; Start 11/25/16 at 13:00; Status UNV Assessment/Plan Chief Complaint/Hosp Course assessment/impression - bacteremia due to 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 Transthoracic echo was negative for endocarditis; according to Dr. Turk, it was a technically good study - a small gallstone vs. gallbladder polyp, Pt does not have symptomatology of acute cholecystitis - density in L lung, possible changes post microwave ablation or rounded atelectasis. This finding seems unchanged compared to his previous CXR and chest CT performed at [facility] in 2016 (I am a [facility] provider too) - [facility], intermittent dysuria - hypothyroidism recommendations - await the speciation and sensitivity of Gram negative coccobacilli in blood culture from 11/22/2016. Possibilities include kingella (HACEK group, mouth/ throat jael), haemophilus (respiratory jael), acinetobacter (nosocomial, GI jael) - await the results of blood cultures from 11/23/2016 - so far negative - depending on the species of bacteria in his blood culture, I will recommend further tests/lab - for now, I recommend continuing PO levofloxacin. I will adjust the antibiotic based on the final blood culture result management d/w Pt and his RN Problems: GEORGE BELCHER M.D. Nov 25, 2016 22:50 GEORGE BELCHER M.D. Nov 25, 2016 22:50
[2016-11-26] VITALS (11 sets, daily range): BP systolic 119–147; BP diastolic 57–84; PULSE 50–67; RESP 18–20
[2016-11-26] MEDS: PANTOPRAZOLE (EC) 40 MG TAB PO SCH (06:09)
[2016-11-26] MEDS: LEVOTHYROXINE 50 MCG TAB PO SCH (06:09)
[2016-11-26 08:35] LABS: ADD UMIC NO; URINE BILIRUBIN (Dip) NEGATIVE (NEGATIVE); URINE BLOOD (Dip) NEGATIVE (NEGATIVE); URINE COLOR YELLOW (YELLOW); URINE GLUCOSE (Dip) NEGATIVE (NEGATIVE); URINE KETONES (Dip) NEGATIVE (NEGATIVE); URINE LEUKOCYTE ESTERASE (Dip) NEGATIVE (NEGATIVE); URINE NITRITE (Dip) NEGATIVE (NEGATIVE); URINE TOTAL PROTEIN (Dip) NEGATIVE (NEGATIVE); URINE UROBILINOGEN (Dip) 0.2 E.U./dL (0.1-1.0)
[2016-11-26] MEDS: SENNA TAB PO SCH ×2 (09:00→21:00)
[2016-11-26] MEDS: LEVOFLOXACIN 500 MG TAB PO SCH (09:59)
[2016-11-26] MEDS: FINASTERIDE 5 MG TAB PO SCH (09:59)
[2016-11-26] MEDS: ASPIRIN 81 MG TAB PO SCH (09:59)
[2016-11-26] MEDS: ENOXAPARIN 40 MG/0.4 ML SYG SC SCH (10:01)
[2016-11-26] MEDS: BENAZEPRIL 5 MG TAB PO SCH (10:04)
--- NOTE | 2016-11-26 17:02 | PN ---
Date/Time of Note Date/Time of Note DATE: 11/26/16 TIME: 17:01 Assessment/Plan VTE Prophylaxis VTE Prophylaxis Intervention: SCD's Lines/Catheters IV Catheter Type (from Nrs): Saline Lock Urinary Cath still in place: No Assessment/Plan Chief Complaint/Hosp Course 86-year-old male with a history of CABG, TAVR, BPH and hypothyroidism presenting to the ER for acute onset dizziness and weakness at home. His hx was obtained from his daughter but he was wiht his girlfriend at that time - he was getting out of bed to go use the restroom and felt very dizzy and weak. He started urinating on himself as he could not make it to the bathroom. He denied any chest pain, shortness of breath, vision disturbance. He felt somewhat lightheaded with some room spinning dizziness and states his legs started to feel very weak. He has not felt like this before. He denies any recent illnesses. No current chest pain, shortness of breath, fever, chills, abdominal pain, or back pain. Upon arrival to the ER, he had transient bradycardia wiht heart blokc but no sycnope ad as such, I was asked to see him in cardiac consultaiton. 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 HX OF CABG HX OF BIOAVR > S/P TAVR HX OF HEAD AND NECK CANCER HTN -The patinent with sinus bradycardia at HR 40 that was transeint wiht Second Degreee Mobitz heart block on admission - could be wenkeback vs Type 2 - no recurrence overnight and no pauses -Will monitor on tele, but no recurrence -avoid av blolockers -continue acei due to hx of CABG -unclear etiology of weakness and shakiness ?prsotatits -the patient with no peristent fevers, leukocytosis or persitent bacteremia wiht echo being a good study and no vegettions - given hx of Head&Neck CA. no GIULIA at this time necessary and discussed with ID service . Dr ornelas and patient -no further cardaic work up necessary but elective event recorder may be ogf value -i spoke with the ID service today - given bacteremia and high risk patient for GIULIA, she may chooose to treat patient for 4-6 weeks Subjective 24 Hr Interval Summary Free Text/Dictation The patient doing better Exam/Review of Systems Vital Signs Vitals Vital Signs Date Time Temp Pulse Resp B/P Pulse Ox O2 Delivery O2 Flow Rate FiO2 11/26/16 16:21 98.3 65 18 135/62 98 11/26/16 08:00 Nasal Cannula 2.0 Intake and Output 11/25/16 11/25/16 11/26/16 15:00 23:00 07:00 Intake Total 750 ml 500 ml Balance 750 ml 500 ml Results Result Diagram: 11/25/16 0635 11/25/16 0635 Results 24 hrs Laboratory Tests Test 11/26/16 04:02 Urine Color YELLOW Urine Clarity CLEAR Urine pH 5.0 Urine Specific [place] 1.020 Urine Ketones NEGATIVE Urine Nitrite NEGATIVE Urine Bilirubin NEGATIVE Urine Urobilinogen 0.2 E.U./dL Urine Leukocyte Esterase NEGATIVE Urine Hemoglobin NEGATIVE Urine Glucose NEGATIVE Urine Total Protein NEGATIVE Medications Medications Current Medications Ondansetron HCl (Zofran Inj) 4 mg Q6H PRN IV NAUSEA AND/OR VOMITING; Start at 09:30 Aspirin (Aspirin) 81 mg DAILY PO Last administered on 11/26/16 09:59; Admin Dose 81 MG; Start 11/22/16 at 10:30 Acetaminophen (Tylenol Tab) 650 mg Q6H PRN PO PAIN LEVEL 1-3 OR FEVER; Start at 09:30 Docusate Sodium (Colace) 100 mg Q12H PRN PO CONSTIPATION Last administered on 08:45; Admin Dose 100 MG; Start 11/22/16 at 09:30 Pantoprazole (Protonix Tab) 40 mg DAILY@06 PO Last administered on 11/26/16 06 :09; Admin Dose 40 MG; Start 11/22/16 at 10:30 Enoxaparin Sodium (Lovenox) 40 mg DAILY SC Last administered on 11/26/16 10:01 ; Admin Dose 40 MG; Start 11/22/16 at 10:30 Atorvastatin Calcium (Lipitor) 40 mg QHS PO Last administered on 11/25/16 21: 04; Admin Dose 40 MG; Start 11/22/16 at 21:00 Finasteride (Proscar) 5 mg DAILY PO Last administered on 11/26/16 09:59; Admin Dose 5 MG; Start 11/22/16 at 11:30 Benazepril HCl (Lotensin) 5 mg DAILY PO Last administered on 11/26/16 10:04; Admin Dose 5 MG; Start 11/23/16 at 09:00 Senna (Senokot) 2 tab BID PO Last administered on 11/25/16 08:45; Admin Dose 2 TAB; Start 11/23/16 at 14:00 Sodium Biphosphate/ Sodium Phosphate (Fleet Enema) 133 ml DAILY PRN [place] CONSTIPATION Last administered on 11/25/16 08:48; Admin Dose 133 ML; Start at 12:00 Levofloxacin (Levaquin) 500 mg DAILY PO Last administered on 11/26/16 09:59; Admin Dose 500 MG; Start 11/25/16 at 09:00 Miscellaneous Information (* Miscellaneous Pharmacy Order) 2 ea TID PO ; Start 11/25/16 at 13:00; Status BILLY JUARES MD Nov 26, 2016 17:02
--- NOTE | 2016-11-26 18:41 | PN ---
Date/Time of Note Date/Time of Note DATE: 11/26/16 TIME: 18:37 Assessment/Plan VTE Prophylaxis VTE Prophylaxis Intervention: LMWH Lines/Catheters IV C[facility]ter Type (from [facility]): Sal[facility] Lock Urinary Cath still in place: No Assessment/Plan Problems: (1) Fever Status: Acute Comment: Afebrile since starting levaquin. 1 blood culture positive. Awaiting identification and sensitivities. Await ID recs for further studies vs. ongoing empiric treatment w/ levaquin and time course for treatment. If no further studies, will start d/c planning once ID gives us this determination. Qualifiers: Fever type: unspecified Qualified Code: R50.9 - Fever, unspecified fever cause (2) Hypothyroidism Status: Chronic Comment: Will begin alternating LT4 doses as pt. requests. Qualifiers: Hypothyroidism type: acquired Qualified Code: E03.9 - Acquired hypothyroidism (3) Generalized weakness Status: Acute Comment: Consider ARU vs. home w/ HHPT once antibiotic course determined. Will d/w pt. and family at that time. Subjective 24 Hr Interval Summary Constitutional: other (fatigue; reports was taking alternating 50 and 75 mcg doses of LT4 at home for last 2 months (although this was not what was originally reported) and wants to be resumed on this dosage) Respiratory: no complaints Cardiovascular: no complaints Gastrointestinal: no complaints Genitourinary: no complaints Musculoskeletal: no complaints Neurologic: no complaints Exam/Review of Systems Vital Signs Vitals VS - Last 72 Hours, by Label Date Time Temp Pulse Resp B/P Pulse Ox O2 Delivery O2 Flow Rate FiO2 11/26/16 16:21 98.3 65 18 135/62 98 11/26/16 16:05 61 11/26/16 12:17 98.3 64 19 140/59 97 11/26/16 12:05 64 11/26/16 08:00 Nasal Cannula 2.0 11/26/16 08:00 67 11/26/16 07:52 98.8 64 18 142/84 98 11/26/16 04:56 98.6 88 18 147/78 95 11/26/16 04:25 62 11/26/16 00:20 65 11/25/16 23:49 97.8 65 18 133/70 98 11/25/16 21:49 Nasal Cannula 2.0 11/25/16 20:19 73 11/25/16 19:42 97.7 77 16 114/57 96 11/25/16 16:15 73 11/25/16 16:09 98.7 83 19 110/64 97 11/25/16 12:09 83 11/25/16 11:52 98.6 58 18 122/66 97 11/25/16 08:20 Nasal Cannula 2.0 11/25/16 08:14 82 11/25/16 07:39 98.2 63 18 126/60 98 11/25/16 04:31 97.8 58 18 130/62 98 11/25/16 04:21 66 11/25/16 00:10 57 11/25/16 00:08 97.7 59 16 115/64 97 11/24/16 20:09 53 11/24/16 20:02 97.5 53 18 104/59 97 11/24/16 19:37 Nasal Cannula 2.0 11/24/16 16:36 97.7 63 18 95/51 96 11/24/16 16:05 66 11/24/16 16:05 66 11/24/16 12:07 60 11/24/16 11:49 97.9 63 19 116/62 98 11/24/16 09:03 59 11/24/16 08:30 Nasal Cannula 2.0 11/24/16 07:46 98.6 59 18 158/68 99 11/24/16 05:09 66 11/24/16 04:44 55 11/24/16 00:26 73 11/23/16 23:30 97.4 75 20 107/55 100 Nasal Cannula 2.0 11/23/16 20:32 107 11/23/16 20:00 Nasal Cannula 2.0 11/23/16 20:00 100.4 110 20 120/62 95 Nasal Cannula 2.0 11/23/16 19:37 120 11/23/16 19:24 128 Vital Signs Date Time Temp Pulse Resp B/P Pulse Ox O2 Delivery O2 Flow Rate FiO2 11/26/16 16:21 98.3 65 18 135/62 98 11/26/16 08:00 Nasal Cannula 2.0 Intake and Output 11/25/16 11/25/16 11/26/16 15:00 23:00 07:00 Intake Total 750 ml 500 ml Balance 750 ml 500 ml Exam Constitutional: alert, oriented, well developed Respiratory: clear to auscultation, normal air movement Cardiovascular: nl pulses, regular rate and rhythm, No edema, No murmurs/extra sounds, No rub Gastrointestinal: bowel sounds, nl liver, spleen, non-tender, soft, No mass, No rebound or guarding Musculoskeletal: nl extremities to inspection Extremities: normal pulses, No clubbing, No cyanosis, No edema Neurological: SOFTWARE VERIFICATION ENGINEER II-XII intact, nl mental status, nl speech, nl strength Results Result Diagram: 11/25/1663411/25/16 0635 Results 24 hrs Laboratory Tests Test 11/26/16 04:02 Urine Color YELLOW Urine Clarity CLEAR Urine pH 5.0 Urine Specific [place] 1.020 Urine Ketones NEGATIVE Urine Nitrite NEGATIVE Urine Bilirubin NEGATIVE Urine Urobilinogen 0.2 E.U./dL Urine Leukocyte Esterase NEGATIVE Urine Hemoglobin NEGATIVE Urine Glucose NEGATIVE Urine Total Protein NEGATIVE Medications Medications Current Medications Ondansetron HCl (Zofran Inj) 4 mg Q6H PRN IV NAUSEA AND/OR VOMITING; Start at 09:30 Aspirin (Aspirin) 81 mg DAILY PO Last administered on 11/26/16 09:59; Admin Dose 81 MG; Start 11/22/16 at 10:30 Acetaminophen (Tylenol Tab) 650 mg Q6H PRN PO PAIN LEVEL 1-3 OR FEVER; Start at 09:30 Docusate Sodium (Colace) 100 mg Q12H PRN PO CONSTIPATION Last administered on 08:45; Admin Dose 100 MG; Start 11/22/16 at 09:30 Pantoprazole (Protonix Tab) 40 mg DAILY@06 PO Last administered on 11/26/16 06 :09; Admin Dose 40 MG; Start 11/22/16 at 10:30 Enoxaparin Sodium (Lovenox) 40 mg DAILY SC Last administered on 11/26/16 10:01 ; Admin Dose 40 MG; Start 11/22/16 at 10:30 Atorvastatin Calcium (Lipitor) 40 mg QHS PO Last administered on 11/25/16 21: 04; Admin Dose 40 MG; Start 11/22/16 at 21:00 Finasteride (Proscar) 5 mg DAILY PO Last administered on 11/26/16 09:59; Admin Dose 5 MG; Start 11/22/16 at 11:30 Benazepril HCl (Lotensin) 5 mg DAILY PO Last administered on 11/26/16 10:04; Admin Dose 5 MG; Start 11/23/16 at 09:00 Senna (Senokot) 2 tab BID PO Last administered on 11/25/16 08:45; Admin Dose 2 TAB; Start 11/23/16 at 14:00 Sodium Biphosphate/ Sodium Phosphate (Fleet Enema) 133 ml DAILY PRN [place] CONSTIPATION Last administered on 11/25/16 08:48; Admin Dose 133 ML; Start at 12:00 Levofloxacin (Levaquin) 500 mg DAILY PO Last administered on 11/26/16 09:59; Admin Dose 500 MG; Start 11/25/16 at 09:00 Miscellaneous Information (* Miscellaneous Pharmacy Order) 2 ea TID PO ; Start 11/25/16 at 13:00; Status MAKAYLA BUTCHER MD Nov 26, 2016 18:41
--- NOTE | 2016-11-26 21:29 | CONS ---
PAT HANKS NP 11/26/162128: Date/Time of Note Date/Time of Note DATE: 11/26/16 TIME: 21:28 Assessment/Plan Assessment/Plan Chief Complaint/Hosp Course Assessment/Impression: - bacteremia due to 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 Transthoracic echo was negative for endocarditis; according to Dr. Turk, it was a technically good study - a small gallstone vs. gallbladder polyp, Pt does not have symptomatology of acute cholecystitis - density in L lung, possible changes post microwave ablation or rounded atelectasis. This finding seems unchanged compared to his previous CXR and chest CT performed at [facility] in 2016 (I am a [facility] provider too) - BRH, intermittent dysuria - hypothyroidism Recommendations: - Await the speciation and sensitivity of Gram negative coccobacilli in blood culture from 11/22/2016. Possibilities include kingella (HACEK group, mouth/ throat jael), haemophilus (respiratory jael), acinetobacter (nosocomial, GI jael) - Await the results of blood cultures from 11/23/2016 - so far negative - Depending on the species of bacteria in his blood culture, I will recommend further tests/lab - Continuing PO levofloxacin. I will adjust the antibiotic based on the final blood culture result Management d/w Pt; therapeutic time provided Above d/w Dr. Hilton Problems: Consultation Date/Type/Reason Admit Date/Time Nov 22, 2016 at 06:14 Initial Consult Date 11/24/16 Type of Consultation: Infectious Disease Referring Provider: MAKAYLA RAMIREZ MD 24 HR Interval Summary Free Text/Dictation No acute issues. Detailed Summary Respiratory: no complaints Cardiovascular: no complaints Gastrointestinal: no complaints Genitourinary: no complaints Musculoskeletal: no complaints Skin: no complaints Neurologic: no complaints Endocrine: no complaints Psychological: no complaints Exam/Review of Systems Vital Signs Vitals Vital Signs Date Time Temp Pulse Resp B/P Pulse Ox O2 Delivery O2 Flow Rate FiO2 11/26/16 20:09 98.2 66 20 119/57 97 11/26/16 08:00 Nasal Cannula 2.0 Intake and Output 11/25/16 11/25/16 11/26/16 15:00 23:00 07:00 Intake Total 750 ml 500 ml Balance 750 ml 500 ml Exam Constitutional: alert, oriented, well developed Psych: nl mood/affect, no complaints Head: atraumatic, normocephalic Eyes: nl sclera Neck: supple Respiratory: clear to auscultation, normal air movement Cardiovascular: regular rate and rhythm Gastrointestinal: non-tender, soft Musculoskeletal: nl extremities to inspection Extremities: normal pulses, No clubbing, No edema Neurological: nl mental status, nl speech, nl strength Skin: nl turgor, No rash or lesions Results Result Diagram: 11/25/16 0635 11/25/16 0635 Results 24 hrs Laboratory Tests Test 11/26/16 04:02 Urine Color YELLOW Urine Clarity CLEAR Urine pH 5.0 Urine Specific [place] 1.020 Urine Ketones NEGATIVE Urine Nitrite NEGATIVE Urine Bilirubin NEGATIVE Urine Urobilinogen 0.2 E.U./dL Urine Leukocyte Esterase NEGATIVE Urine Hemoglobin NEGATIVE Urine Glucose NEGATIVE Urine Total Protein NEGATIVE Medications Medications Current Medications Ondansetron HCl (Zofran Inj) 4 mg Q6H PRN IV NAUSEA AND/OR VOMITING; Start at 09:30 Aspirin (Aspirin) 81 mg DAILY PO Last administered on 11/26/16 09:59; Admin Dose 81 MG; Start 11/22/16 at 10:30 Acetaminophen (Tylenol Tab) 650 mg Q6H PRN PO PAIN LEVEL 1-3 OR FEVER; Start at 09:30 Docusate Sodium (Colace) 100 mg Q12H PRN PO CONSTIPATION Last administered on 08:45; Admin Dose 100 MG; Start 11/22/16 at 09:30 Pantoprazole (Protonix Tab) 40 mg DAILY@06 PO Last administered on 11/26/16 06 :09; Admin Dose 40 MG; Start 11/22/16 at 10:30 Enoxaparin Sodium (Lovenox) 40 mg DAILY SC Last administered on 11/26/16 10:01 ; Admin Dose 40 MG; Start 11/22/16 at 10:30 Atorvastatin Calcium (Lipitor) 40 mg QHS PO Last administered on 11/25/16 21: 04; Admin Dose 40 MG; Start 11/22/16 at 21:00 Finasteride (Proscar) 5 mg DAILY PO Last administered on 11/26/16 09:59; Admin Dose 5 MG; Start 11/22/16 at 11:30 Benazepril HCl (Lotensin) 5 mg DAILY PO Last administered on 11/26/16 10:04; Admin Dose 5 MG; Start 11/23/16 at 09:00 Senna (Senokot) 2 tab BID PO Last administered on 11/25/16 08:45; Admin Dose 2 TAB; Start 11/23/16 at 14:00 Sodium Biphosphate/ Sodium Phosphate (Fleet Enema) 133 ml DAILY PRN [place] CONSTIPATION Last administered on 11/25/16 08:48; Admin Dose 133 ML; Start at 12:00 Levofloxacin (Levaquin) 500 mg DAILY PO Last administered on 11/26/16 09:59; Admin Dose 500 MG; Start 11/25/16 at 09:00 Levothyroxine Sodium (Synthroid) 50 mcg Q2D@06 PO ; Start 11/28/16 at 06:00 Levothyroxine Sodium (Synthroid) 75 mcg Q2D@06 PO ; Start 11/27/16 at 06:00 Patient Own Medication 2 ea TID PO ; Start 11/26/16 at 21:00 GEORGE HILTON M.D. 11/27/16 2135: Assessment/Plan Assessment/Plan Additional Assessment/Plan Yobani attestation: I discussed the management with TRUMAN Hanks and agree with above Exam/Review of Systems Results Result Diagram: 11/25/16 0635 11/25/16 0635 PAT HANKS NP Nov 26, 2016 21:29 GEORGE HILTON M.D. Nov 27, 2016 21:35
[2016-11-26] MEDS: HERBAL LAXATIVE PO SCH (22:05)
[2016-11-26] MEDS: ATORVASTATIN 40 MG TAB PO SCH (22:05)
[2016-11-27] VITALS (13 sets, daily range): BP systolic 118–173; BP diastolic 57–72; PULSE 58–66; RESP 18–20
[2016-11-27] MEDS: PANTOPRAZOLE (EC) 40 MG TAB PO SCH (06:35)
[2016-11-27] MEDS: LEVOTHYROXINE 75 MCG TAB PO SCH (06:36)
[2016-11-27 07:32] LABS: ALBUMIN/GLOBULIN RATIO 1.07; BILIRUBIN,INDIRECT 0.4 mg/dl (0-1.1); BILIRUBIN,TOTAL 0.4 mg/dl (0.2-1.3); CALCIUM 8.3 mg/dl (8.4-10.2); POTASSIUM 3.9 mmol/L (3.5-5.1); TOTAL PROTEIN 5.8 g/dl (6.1-8.1)
[2016-11-27] MEDS: SENNA TAB PO SCH ×2 (09:00→21:00)
[2016-11-27] MEDS: ASPIRIN 81 MG TAB PO SCH (09:38)
[2016-11-27] MEDS: BENAZEPRIL 5 MG TAB PO SCH (09:38)
[2016-11-27] MEDS: FINASTERIDE 5 MG TAB PO SCH (09:38)
[2016-11-27] MEDS: LEVOFLOXACIN 500 MG TAB PO SCH (09:38)
[2016-11-27] MEDS: HERBAL LAXATIVE PO SCH ×3 (09:38→20:38)
[2016-11-27] MEDS: ENOXAPARIN 40 MG/0.4 ML SYG SC SCH (12:00)
--- NOTE | 2016-11-27 15:53 | PN ---
Date/Time of Note Date/Time of Note DATE: 11/27/16 TIME: 15:52 Assessment/Plan VTE Prophylaxis VTE Prophylaxis Intervention: SCD's Lines/Catheters IV Catheter Type (from Nrs): Saline Lock Urinary Cath still in place: No Assessment/Plan Chief Complaint/Hosp Course 86-year-old male with a history of CABG, TAVR, BPH and hypothyroidism presenting to the ER for acute onset dizziness and weakness at home. His hx was obtained from his daughter but he was wiht his girlfriend at that time - he was getting out of bed to go use the restroom and felt very dizzy and weak. He started urinating on himself as he could not make it to the bathroom. He denied any chest pain, shortness of breath, vision disturbance. He felt somewhat lightheaded with some room spinning dizziness and states his legs started to feel very weak. He has not felt like this before. He denies any recent illnesses. No current chest pain, shortness of breath, fever, chills, abdominal pain, or back pain. Upon arrival to the ER, he had transient bradycardia wiht heart blokc but no sycnope ad as such, I was asked to see him in cardiac consultaiton. 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 HX OF CABG HX OF BIOAVR > S/P TAVR HX OF HEAD AND NECK CANCER HTN s/p bacteriemia -The patinent with sinus bradycardia at HR 40 that was transeint wiht Second Degreee Mobitz heart block on admission - could be wenkeback vs Type 2 - no recurrence overnight and no pauses -Will monitor on tele, but no recurrence -avoid av blolockers -continue acei due to hx of CABG -no further cardaic work up necessary but elective event recorder may be of value -i spoke with the ID service - given bacteremia and high risk patient for GIULIA, she may chooose to treat patient for 4-6 weeks with antibiotics Subjective 24 Hr Interval Summary Free Text/Dictation The aptient better Exam/Review of Systems Vital Signs Vitals Vital Signs Date Time Temp Pulse Resp B/P Pulse Ox O2 Delivery O2 Flow Rate FiO2 11/27/16 12:07 98.7 73 18 156/67 97 11/26/16 22:05 Nasal Cannula 2.0 Intake and Output 4/17/17 4/17/17 4/18/17 15:00 23:00 07:00 Intake Total 600 ml 250 ml Balance 600 ml 250 ml Results Result Diagram: 11/25/16 0635 11/27/16 0546 Results 24 hrs Laboratory Tests Test 11/27/16 05:46 Sodium Level 136 Potassium Level 3.9 Chloride Level 105 Carbon Dioxide Level 28 Anion Gap 7 L Blood Urea Nitrogen 17 Creatinine 1.00 Glucose Level 89 Calcium Level 8.3 L Total Bilirubin 0.4 Direct Bilirubin 0.00 Indirect Bilirubin 0.4 Aspartate Amino Transf (AST/SGOT) 25 Alanine Aminotransferase (ALT/SGPT) 30 Alkaline Phosphatase 52 Total Protein 5.8 L Albumin 3.0 L Globulin 2.80 Albumin/Globulin Ratio 1.07 Medications Medications Current Medications Ondansetron HCl (Zofran Inj) 4 mg Q6H PRN IV NAUSEA AND/OR VOMITING; Start at 09:30 Aspirin (Aspirin) 81 mg DAILY PO Last administered on 11/27/16 09:38; Admin Dose 81 MG; Start 11/22/16 at 10:30 Acetaminophen (Tylenol Tab) 650 mg Q6H PRN PO PAIN LEVEL 1-3 OR FEVER; Start at 09:30 Docusate Sodium (Colace) 100 mg Q12H PRN PO CONSTIPATION Last administered on 08:45; Admin Dose 100 MG; Start 11/22/16 at 09:30 Pantoprazole (Protonix Tab) 40 mg DAILY@06 PO Last administered on 11/27/16 06 :35; Admin Dose 40 MG; Start 11/22/16 at 10:30 Atorvastatin Calcium (Lipitor) 40 mg QHS PO Last administered on 11/26/16 22: 05; Admin Dose 40 MG; Start 11/22/16 at 21:00 Finasteride (Proscar) 5 mg DAILY PO Last administered on 11/27/16 09:38; Admin Dose 5 MG; Start 11/22/16 at 11:30 Benazepril HCl (Lotensin) 5 mg DAILY PO Last administered on 11/27/16 09:38; Admin Dose 5 MG; Start 11/23/16 at 09:00 Senna (Senokot) 2 tab BID PO Last administered on 11/25/16 08:45; Admin Dose 2 TAB; Start 11/23/16 at 14:00 Sodium Biphosphate/ Sodium Phosphate (Fleet Enema) 133 ml DAILY PRN [place] CONSTIPATION Last administered on 11/25/16 08:48; Admin Dose 133 ML; Start at 12:00 Levofloxacin (Levaquin) 500 mg DAILY PO Last administered on 11/27/16 09:38; Admin Dose 500 MG; Start 11/25/16 at 09:00 Levothyroxine Sodium (Synthroid) 50 mcg Q2D@06 PO ; Start 11/28/16 at 06:00 Levothyroxine Sodium (Synthroid) 75 mcg Q2D@06 PO Last administered on 06:36; Admin Dose 75 MCG; Start 11/27/16 at 06:00 Patient Own Medication 2 ea TID PO Last administered on 11/27/16 13:37; Admin Dose 2 EA; Start 11/26/16 at 21:00 BILLY HINKLE MD Nov 27, 2016 15:53
[2016-11-27] MEDS: ATORVASTATIN 40 MG TAB PO SCH (20:38)
--- NOTE | 2016-11-27 21:26 | PN ---
Date/Time of Note Date/Time of Note DATE: 11/27/16 TIME: 21:19 Assessment/Plan VTE Prophylaxis VTE Prophylaxis Intervention: contraindicated VTE Contraindication Reason: anticoagulation not tolerated Lines/Catheters IV Catheter Type (from Nrs): Saline Lock Urinary Cath still in place: No Assessment/Plan Problems: (1) Fever Status: Acute Comment: Afebrile since starting levofloxacin Qualifiers: Fever type: unspecified Qualified Code: R50.9 - Fever, unspecified fever cause (2) Gram-negative bacteremia Status: Acute Comment: Identified as Hemophilus species, pansensitive. Source still not identified. Defer to ID if further studies to be done vs. determine length of course of therapy. (3) Thrombocytopenia Status: Acute Comment: Stop enoxaparin and recheck CBC (4) Generalized weakness Status: Acute Comment: Cont. PT and will discuss dispo w/ family home w/ home health vs. ARU once plan given from ID Subjective 24 Hr Interval Summary Constitutional: improved (but still feels weak when walking), no complaints Respiratory: no complaints Cardiovascular: no complaints Gastrointestinal: no complaints Genitourinary: no complaints Musculoskeletal: no complaints Neurologic: other (weak when walking) Exam/Review of Systems Vital Signs Vitals VS - Last 72 Hours, by Label Date Time Temp Pulse Resp B/P Pulse Ox O2 Delivery O2 Flow Rate FiO2 11/27/16 20:20 59 11/27/16 19:58 98.9 67 18 118/62 97 11/27/16 16:04 98.6 63 20 127/57 96 11/27/16 16:00 59 11/27/16 12:07 98.7 73 18 156/67 97 11/27/16 12:00 66 11/27/16 08:00 62 11/27/16 07:52 98.0 55 19 173/72 98 11/27/16 04:32 98.5 59 20 165/71 98 11/27/16 04:03 58 11/27/16 00:20 98.3 65 20 125/58 96 11/27/16 00:03 63 11/26/16 22:05 Nasal Cannula 2.0 11/26/16 20:33 50 11/26/16 20:09 98.2 66 20 119/57 97 11/26/16 16:21 98.3 65 18 135/62 98 11/26/16 16:05 61 11/26/16 12:17 98.3 64 19 140/59 97 11/26/16 12:05 64 11/26/16 08:00 Nasal Cannula 2.0 11/26/16 08:00 67 11/26/16 07:52 98.8 64 18 142/84 98 11/26/16 04:56 98.6 88 18 147/78 95 11/26/16 04:25 62 11/26/16 00:20 65 11/25/16 23:49 97.8 65 18 133/70 98 11/25/16 21:49 Nasal Cannula 2.0 11/25/16 20:19 73 11/25/16 19:42 97.7 77 16 114/57 96 11/25/16 16:15 73 11/25/16 16:09 98.7 83 19 110/64 97 11/25/16 12:09 83 11/25/16 11:52 98.6 58 18 122/66 97 11/25/16 08:20 Nasal Cannula 2.0 11/25/16 08:14 82 11/25/16 07:39 98.2 63 18 126/60 98 11/25/16 04:31 97.8 58 18 130/62 98 11/25/16 04:21 66 11/25/16 00:10 57 11/25/16 00:08 97.7 59 16 115/64 97 Vital Signs Date Time Temp Pulse Resp B/P Pulse Ox O2 Delivery O2 Flow Rate FiO2 11/27/16 20:20 59 11/27/16 19:58 98.9 18 118/62 97 11/26/16 22:05 Nasal Cannula 2.0 Intake and Output 11/26/16 11/26/16 11/27/16 15:00 23:00 07:00 Intake Total 600 ml 250 ml Balance 600 ml 250 ml Exam Constitutional: alert, oriented, well developed Respiratory: clear to auscultation, normal air movement Cardiovascular: nl pulses, regular rate and rhythm, No edema, No murmurs/extra sounds, No rub Gastrointestinal: bowel sounds, nl liver, spleen, non-tender, soft, No mass, No rebound or guarding Musculoskeletal: nl extremities to inspection Extremities: normal pulses, No clubbing, No cyanosis, No edema Neurological: INFORMATION SYSTEMS AUDIT MANAGER II-XII intact, nl mental status, nl speech, nl strength Results Result Diagram: 11/25/16 0635 11/27/16 0546 Results 24 hrs Laboratory Tests Test 11/27/16 05:46 Sodium Level 136 Potassium Level 3.9 Chloride Level 105 Carbon Dioxide Level 28 Anion Gap 7 L Blood Urea Nitrogen 17 Creatinine 1.00 Glucose Level 89 Calcium Level 8.3 L Total Bilirubin 0.4 Direct Bilirubin 0.00 Indirect Bilirubin 0.4 Aspartate Amino Transf (AST/SGOT) 25 Alanine Aminotransferase (ALT/SGPT) 30 Alkaline Phosphatase 52 Total Protein 5.8 L Albumin 3.0 L Globulin 2.80 Albumin/Globulin Ratio 1.07 Medications Medications Current Medications Ondansetron HCl (Zofran Inj) 4 mg Q6H PRN IV NAUSEA AND/OR VOMITING; Start at 09:30 Aspirin (Aspirin) 81 mg DAILY PO Last administered on 11/27/16 09:38; Admin Dose 81 MG; Start 11/22/16 at 10:30 Acetaminophen (Tylenol Tab) 650 mg Q6H PRN PO PAIN LEVEL 1-3 OR FEVER; Start at 09:30 Docusate Sodium (Colace) 100 mg Q12H PRN PO CONSTIPATION Last administered on 08:45; Admin Dose 100 MG; Start 11/22/16 at 09:30 Pantoprazole (Protonix Tab) 40 mg DAILY@06 PO Last administered on 11/27/16 06 :35; Admin Dose 40 MG; Start 11/22/16 at 10:30 Atorvastatin Calcium (Lipitor) 40 mg QHS PO Last administered on 11/27/16 20: 38; Admin Dose 40 MG; Start 11/22/16 at 21:00 Finasteride (Proscar) 5 mg DAILY PO Last administered on 11/27/16 09:38; Admin Dose 5 MG; Start 11/22/16 at 11:30 Benazepril HCl (Lotensin) 5 mg DAILY PO Last administered on 11/27/16 09:38; Admin Dose 5 MG; Start 11/23/16 at 09:00 Senna (Senokot) 2 tab BID PO Last administered on 11/25/16 08:45; Admin Dose 2 TAB; Start 11/23/16 at 14:00 Sodium Biphosphate/ Sodium Phosphate (Fleet Enema) 133 ml DAILY PRN [place] CONSTIPATION Last administered on 11/25/16 08:48; Admin Dose 133 ML; Start at 12:00 Levofloxacin (Levaquin) 500 mg DAILY PO Last administered on 11/27/16 09:38; Admin Dose 500 MG; Start 11/25/16 at 09:00 Levothyroxine Sodium (Synthroid) 50 mcg Q2D@06 PO ; Start 11/28/16 at 06:00 Levothyroxine Sodium (Synthroid) 75 mcg Q2D@06 PO Last administered on 06:36; Admin Dose 75 MCG; Start 11/27/16 at 06:00 Patient Own Medication 2 ea TID PO Last administered on 11/27/16 20:38; Admin Dose 2 EA; Start 11/26/16 at 21:00 MAKAYLA RAIMREZ MD Nov 27, 2016 21:26
--- NOTE | 2016-11-27 21:45 | CONS ---
Date/Time of Note Date/Time of Note DATE: 11/27/16 TIME: 21:35 Assessment/Plan Assessment/Plan Chief Complaint/Hosp Course Assessment/Impression: - bacteremia due to Haemophilus species, an oral jael. 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 Transthoracic echo was negative for endocarditis. - a small gallstone vs. gallbladder polyp, Pt does not have symptomatology of acute cholecystitis - density in L lung, possible changes post microwave ablation or rounded atelectasis. This finding seems unchanged compared to his previous CXR and chest CT performed at [facility] in 2016 (I am a [facility] provider too) - BPH, intermittent dysuria recommendations: - Haemophilus species is a part of HACEK group, which come from the mouth and throat. 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 I recommend and ordered CT face/mandible and neck to r/o deep seated infection (abscess) for tomorrow morning. - I agree with Dr. Turk that transesophageal echo will be a high risk for this Pt given his age and h/o laryngeal CA/XRT. 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 I recommend empiric treatment for prosthetic valve infection using ceftriaxone via PICC for 6 weeks according to AHA recommendation (Barrour et al 2015) - d/c levofloxacin - I recommend that weekly CBC and CMP be checked while Pt's on ceftriaxone for review by the ordering physician. management d/w Pt and his RN - Problems: Consultation Date/Type/Reason Admit Date/Time Nov 22, 2016 at 06:14 Initial Consult Date 11/24/16 Type of Consultation: Infectious Disease Referring Provider: MAKAYLA RAMIREZ MD 24 HR Interval Summary Constitutional: no complaints Detailed Summary Eyes: no complaints ENT: no complaints Respiratory: no complaints Cardiovascular: no complaints Gastrointestinal: no complaints Genitourinary: no complaints Musculoskeletal: no complaints Skin: no complaints Exam/Review of Systems Vital Signs Vitals Vital Signs Date Time Temp Pulse Resp B/P Pulse Ox O2 Delivery O2 Flow Rate FiO2 11/27/16 20:20 59 11/27/16 19:58 98.9 18 118/62 97 11/26/16 22:05 Nasal Cannula 2.0 Intake and Output 11/26/16 11/26/16 11/27/16 15:00 23:00 07:00 Intake Total 600 ml 250 ml Balance 600 ml 250 ml Exam Constitutional: frail Psych: no complaints Head: atraumatic, normocephalic Eyes: nl conjunctiva, nl lids ENMT: nl external ears & nose, other (some missing teeth) Respiratory: clear to auscultation, normal air movement Cardiovascular: nl pulses, regular rate and rhythm Gastrointestinal: non-tender, soft Extremities: normal pulses Neurological: WELFARE WORKER II-XII intact, nl mental status Results Result Diagram: 11/25/16 0635 11/27/16 0546 Results 24 hrs Laboratory Tests Test 11/27/16 05:46 Sodium Level 136 Potassium Level 3.9 Chloride Level 105 Carbon Dioxide Level 28 Anion Gap 7 L Blood Urea Nitrogen 17 Creatinine 1.00 Glucose Level 89 Calcium Level 8.3 L Total Bilirubin 0.4 Direct Bilirubin 0.00 Indirect Bilirubin 0.4 Aspartate Amino Transf (AST/SGOT) 25 Alanine Aminotransferase (ALT/SGPT) 30 Alkaline Phosphatase 52 Total Protein 5.8 L Albumin 3.0 L Globulin 2.80 Albumin/Globulin Ratio 1.07 Medications Medications Current Medications Ondansetron HCl (Zofran Inj) 4 mg Q6H PRN IV NAUSEA AND/OR VOMITING; Start at 09:30 Aspirin (Aspirin) 81 mg DAILY PO Last administered on 11/27/16 09:38; Admin Dose 81 MG; Start 11/22/16 at 10:30 Acetaminophen (Tylenol Tab) 650 mg Q6H PRN PO PAIN LEVEL 1-3 OR FEVER; Start at 09:30 Docusate Sodium (Colace) 100 mg Q12H PRN PO CONSTIPATION Last administered on 08:45; Admin Dose 100 MG; Start 11/22/16 at 09:30 Pantoprazole (Protonix Tab) 40 mg DAILY@06 PO Last administered on 11/27/16 06 :35; Admin Dose 40 MG; Start 11/22/16 at 10:30 Atorvastatin Calcium (Lipitor) 40 mg QHS PO Last administered on 11/27/16 20: 38; Admin Dose 40 MG; Start 11/22/16 at 21:00 Finasteride (Proscar) 5 mg DAILY PO Last administered on 11/27/16 09:38; Admin Dose 5 MG; Start 11/22/16 at 11:30 Benazepril HCl (Lotensin) 5 mg DAILY PO Last administered on 11/27/16 09:38; Admin Dose 5 MG; Start 11/23/16 at 09:00 Senna (Senokot) 2 tab BID PO Last administered on 11/25/16 08:45; Admin Dose 2 TAB; Start 11/23/16 at 14:00 Sodium Biphosphate/ Sodium Phosphate (Fleet Enema) 133 ml DAILY PRN [place] CONSTIPATION Last administered on 11/25/16 08:48; Admin Dose 133 ML; Start at 12:00 Levofloxacin (Levaquin) 500 mg DAILY PO Last administered on 11/27/16 09:38; Admin Dose 500 MG; Start 11/25/16 at 09:00 Levothyroxine Sodium (Synthroid) 50 mcg Q2D@06 PO ; Start 11/28/16 at 06:00 Levothyroxine Sodium (Synthroid) 75 mcg Q2D@06 PO Last administered on 06:36; Admin Dose 75 MCG; Start 11/27/16 at 06:00 Patient Own Medication 2 ea TID PO Last administered on 11/27/16 20:38; Admin Dose 2 EA; Start 11/26/16 at 21:00 GEORGE BELCHER M.D. Nov 27, 2016 21:45
[2016-11-28] VITALS (12 sets, daily range): BP systolic 126–160; BP diastolic 62–77; PULSE 52–90; RESP 16–22
[2016-11-28] MEDS: LEVOTHYROXINE 50 MCG TAB PO SCH (06:00)
[2016-11-28] MEDS: PANTOPRAZOLE (EC) 40 MG TAB PO SCH (06:23)
[2016-11-28 08:07] LABS: ADD SCAN DIFF NO; BASOPHILS % 0.4 % (0.0-2.0); EOSINOPHILS # 0.2 10^3/ul (0.0-0.5); EOSINOPHILS % 4.1 % (0.0-7.0); HEMATOCRIT 39.1 % (42.0-52.0); HEMOGLOBIN 12.9 g/dl (14.0-18.0); MEAN PLATELET VOLUME 9.4 fl (7.4-10.4); MONOCYTE # 0.5 10^3/ul (0.3-0.9); MONOCYTES % 9.1 % (0.0-11.0); NEUTROPHIL # 3.8 10^3/ul (1.6-7.5); PLATELET COUNT 147 10^3/UL (140-415); RED CELL DISTRIBUTION WIDTH 13.4 % (11.5-14.5); WHITE BLOOD COUNT 5.6 10^3/ul (4.8-10.8)
[2016-11-28] MEDS: SENNA TAB PO SCH ×2 (08:53→20:56)
[2016-11-28] MEDS: ASPIRIN 81 MG TAB PO SCH (08:53)
[2016-11-28] MEDS: HERBAL LAXATIVE PO SCH ×3 (08:54→21:00)
[2016-11-28] MEDS: FINASTERIDE 5 MG TAB PO SCH (08:54)
[2016-11-28] MEDS: BENAZEPRIL 5 MG TAB PO SCH (09:00)
--- NOTE | 2016-11-28 10:49 | CONS ---
Date/Time of Note Date/Time of Note DATE: 11/28/16 TIME: 10:49 Assessment/Plan Assessment/Plan Chief Complaint/Hosp Course Assessment/Impression: - bacteremia due to Haemophilus species, an oral jael. 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 Transthoracic echo was negative for endocarditis. - a small gallstone vs. gallbladder polyp, Pt does not have symptomatology of acute cholecystitis - density in L lung, possible changes post microwave ablation or rounded atelectasis. This finding seems unchanged compared to his previous CXR and chest CT performed at [facility] in 2016 (I am a [facility] provider too) - BPH, intermittent dysuria recommendations: - Haemophilus species is a part of HACEK group, which come from the mouth and throat. 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 I recommend and ordered CT face/mandible and neck to r/o deep seated infection (abscess) for tomorrow morning. - I agree with Dr. Turk that transesophageal echo will be a high risk for this Pt given his age and h/o laryngeal CA/XRT. 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 I recommend empiric treatment for prosthetic valve infection using ceftriaxone via PICC for 6 weeks according to AHA recommendation (Barrour et al 2015) - d/c levofloxacin - I recommend that weekly CBC and CMP be checked while Pt's on ceftriaxone for review by the ordering physician. Problems: Consultation Date/Type/Reason Admit Date/Time Nov 22, 2016 at 06:14 Initial Consult Date 11/24/16 Type of Consultation: Infectious Disease Referring Provider: MAKAYLA RAMIREZ MD Exam/Review of Systems Vital Signs Vitals Vital Signs Date Time Temp Pulse Resp B/P Pulse Ox O2 Delivery O2 Flow Rate FiO2 11/28/16 09:17 58 11/28/16 08:30 99.1 18 140/69 97 Room Air 11/26/16 22:05 2.0 Intake and Output 11/27/16 11/27/16 11/28/16 15:00 23:00 07:00 Intake Total 650 ml 300 ml Balance 650 ml 300 ml Results Result Diagram: 11/28/16 0750 11/27/16 0546 Results 24 hrs Laboratory Tests Test 11/28/16 07:50 White Blood Count 5.6 Red Blood Count 4.60 L Hemoglobin 12.9 L Hematocrit 39.1 L Mean Corpuscular Volume 85.0 Mean Corpuscular Hemoglobin 28.0 L Mean Corpuscular Hemoglobin Concent 33.0 Red Cell Distribution Width 13.4 Platelet Count 147 # Mean Platelet Volume 9.4 Neutrophils % 67.0 Lymphocytes % 18.0 Monocytes % 9.1 Eosinophils % 4.1 Basophils % 0.4 Nucleated Red Blood Cells % 0.0 Neutrophils # 3.8 Lymphocytes # 1.0 Monocytes # 0.5 Eosinophils # 0.2 Basophils # 0.0 Nucleated Red Blood Cells # 0.0 Medications Medications Current Medications Ondansetron HCl (Zofran Inj) 4 mg Q6H PRN IV NAUSEA AND/OR VOMITING; Start at 09:30 Aspirin (Aspirin) 81 mg DAILY PO Last administered on 11/28/16 08:53; Admin Dose 81 MG; Start 11/22/16 at 10:30 Acetaminophen (Tylenol Tab) 650 mg Q6H PRN PO PAIN LEVEL 1-3 OR FEVER; Start at 09:30 Docusate Sodium (Colace) 100 mg Q12H PRN PO CONSTIPATION Last administered on 08:45; Admin Dose 100 MG; Start 11/22/16 at 09:30 Pantoprazole (Protonix Tab) 40 mg DAILY@06 PO Last administered on 11/28/16 06 :23; Admin Dose 40 MG; Start 11/22/16 at 10:30 Atorvastatin Calcium (Lipitor) 40 mg QHS PO Last administered on 11/27/16 20: 38; Admin Dose 40 MG; Start 11/22/16 at 21:00 Finasteride (Proscar) 5 mg DAILY PO Last administered on 11/28/16 08:54; Admin Dose 5 MG; Start 11/22/16 at 11:30 Benazepril HCl (Lotensin) 5 mg DAILY PO Last administered on 11/28/16 09:00; Admin Dose 5 MG; Start 11/23/16 at 09:00 Senna (Senokot) 2 tab BID PO Last administered on 11/28/16 08:53; Admin Dose 2 TAB; Start 11/23/16 at 14:00 Sodium Biphosphate/ Sodium Phosphate (Fleet Enema) 133 ml DAILY PRN [place] CONSTIPATION Last administered on 11/25/16 08:48; Admin Dose 133 ML; Start at 12:00 Levothyroxine Sodium (Synthroid) 50 mcg Q2D@06 PO Last administered on 06:00; Admin Dose 50 MCG; Start 11/28/16 at 06:00 Levothyroxine Sodium (Synthroid) 75 mcg Q2D@06 PO Last administered on 06:36; Admin Dose 75 MCG; Start 11/27/16 at 06:00 Patient Own Medication 2 ea 2 ea TID PO Last administered on 11/28/16 08:54; Admin Dose 2 EA; Start 11/26/16 at 21:00 Ceftriaxone Sodium (Rocephin) 50 ml @ 100 mls/hr Q24H IVPB Last administered on 11/28/16 00:00; Admin Dose 100 MLS/HR; Start 11/27/16 at 22:00 KAITLYNN RYAN MD Nov 28, 2016 10:49
--- NOTE | 2016-11-28 11:53 | RADRPT ---
PROCEDURE: CT face, and soft tissue neck without contrast CLINICAL INDICATION: Bacteremia, history of laryngeal cancer, evaluate abscess TECHNIQUE: CT of the face, and soft tissues of the neck without contrast were performed on a multid etector CT scanner, with multiplanar reformats. One or more of the following dose reduction techniq ues were used: Automated exposure control, adjustment in mA and / or kV according to patient size, u se of iterative reconstructive technique. CTDIvol = 10 mGy and DLP = 313 mGy-cm. COMPARISON: None available FINDINGS: No discrete focal mass lesion, enlarged lymph node meeting size criteria, significant soft tissue sw elling or focal fluid collection is identified throughout the face, and soft tissues of the neck. N o discrete mass is seen in the larynx. The pharynx is grossly unremarkable. The thyroid gland and rest of visceral space structures are unremarkable. The parapharyngeal and retropharyngeal spaces a re clear. Carotid atherosclerotic calcifications are noted. Parotid glands appear unremarkable. S ubmandibular glands are small. The imaged anthropology professor spaces are symmetric. Skull base appears inta ct. The perivertebral and posterior cervical spaces are unremarkable. Noted are intraocular lens r eplacements. The oral cavity is partially obscured by artifacts from dental work, without gross abn ormality seen. There is severe polypoid bilateral maxillary sinus mucosal thickening, partial bilat eral anterior ethmoid air cell opacification, mild right and moderate left frontal sinus mucosal thickening, and partial left sphenoid sinus opacification. There is spondylosis with minimal - mild grade 1 anterolisthesis seen at T2-3 through T4-5. Right apical post inflammatory/granulomatous ch anges are noted with scarring and calcification. IMPRESSION: 1. No acute abnormality, discrete mass or lymphadenopathy identified in the face, or neck on this n oncontrast evaluation. 2. Small parotid glands, possibly sequela of prior radiation treatment. 3. Paranasal sinus disease described above. RPTAT: VV .Robert Arevalo MD, Date Time Electronically viewed and signed by .Robert Arevalo MD, on 11/28/2016 11:53 .O/
--- NOTE | 2016-11-28 11:59 | RADRPT ---
PROCEDURE: CT face, and soft tissue neck without contrast CLINICAL INDICATION: Bacteremia, history of laryngeal cancer, evaluate abscess TECHNIQUE: CT of the face, and soft tissues of the neck without contrast were performed on a multide tector CT scanner, with multiplanar reformats. One or more of the following dose reduction technique s were used: Automated exposure control, adjustment in mA and / or kV according to patient size, use of iterative reconstructive technique. CTDIvol = 10 mGy and DLP = 313 mGy-cm. COMPARISON: None available FINDINGS: No discrete focal mass lesion, enlarged lymph node meeting size criteria, significant soft tissue sw elling or focal fluid collection is identified throughout the face, and soft tissues of the neck. No discrete mass is seen in the larynx. The pharynx is grossly unremarkable. The thyroid gland and res t of visceral space structures are unremarkable. The parapharyngeal and retropharyngeal spaces are clear. Carotid atherosclerotic calcifications are noted. Parotid glands appear unremarkable. Subma ndibular glands are small. The imaged interior design teacher spaces are symmetric. Skull base appears intact. The perivertebral and posterior cervical spaces are unremarkable. Noted are intraocular lens repla cements. The oral cavity is partially obscured by artifacts from dental work, without gross abnorma lity seen. There is severe polypoid bilateral maxillary sinus mucosal thickening, partial bilateral anterior ethmoid air cell opacification, mild right and moderate left frontal sinus mucosal thickening, and partial left sphenoid sinus opacification. There is spondylosis with minimal - mild grade 1 anterolisthesis seen at T2-3 through T4-5. Right apical post inflammatory/granulomatous ch anges are noted with scarring and calcification. IMPRESSION: 1. No acute abnormality, discrete mass or lymphadenopathy identified in the face, or neck on this no ncontrast evaluation. 2. Small parotid glands, possibly sequela of prior radiation treatment. 3. Paranasal sinus disease described above. RPTAT: VV .Robert Arevalo MD, Date Time Electronically viewed and signed by .Robert Arevalo MD, on 11/28/2016 11:59 .O/
[2016-11-28] MEDS ORDERED: LIDOCAINE 1% (MPF) 5 ML VIAL SC ONE ×2 (14:30→15:30)
--- NOTE | 2016-11-28 20:28 | PN ---
Date/Time of Note Date/Time of Note DATE: 11/28/16 TIME: 20:25 Assessment/Plan VTE Prophylaxis VTE Prophylaxis Intervention: contraindicated VTE Contraindication Reason: heparin induced thrombocytopenia Lines/Catheters IV [facility] Urinary Cath still in place: No Assessment/Plan Problems: (1) Gram-negative bacteremia Status: Acute Comment: Per ID culture qualifies as HACEK organism and will be treated empirically as endocarditis x 6 weeks. Facial and neck CT's negative for abscess. No further studies to be done. Pt. will need PICC line and IV rocephin daily over this span. After that, should be cleared of any infection. (2) Generalized weakness Status: Acute Comment: Set up for HHPT. Have d/w daughter who ruled out ARU (3) Fever Status: Resolved Qualifiers: Fever type: unspecified Qualified Code: R50.9 - Fever, unspecified fever cause Subjective 24 Hr Interval Summary Constitutional: improved, no complaints Respiratory: no complaints Cardiovascular: no complaints Gastrointestinal: no complaints Genitourinary: no complaints Musculoskeletal: no complaints Neurologic: no complaints Exam/Review of Systems Vital Signs Vitals VS - Last 72 Hours, by Label Date Time Temp Pulse Resp B/P Pulse Ox O2 Delivery O2 Flow Rate FiO2 11/28/16 18:41 98.7 53 22 160/73 94 11/28/16 16:30 98.5 58 18 126/62 98 Room Air 11/28/16 16:00 55 11/28/16 12:30 97.5 58 18 140/71 97 Room Air 11/28/16 12:00 90 11/28/16 09:17 58 11/28/16 08:30 99.1 59 18 140/69 97 Room Air 11/28/16 08:00 52 11/28/16 04:48 54 11/28/16 03:56 98.0 55 18 160/77 98 11/28/16 00:18 52 11/27/16 23:42 98.0 60 20 144/68 98 11/27/16 20:20 59 11/27/16 19:58 98.9 67 18 118/62 97 11/27/16 16:04 98.6 63 20 127/57 96 11/27/16 16:00 59 11/27/16 12:07 98.7 73 18 156/67 97 11/27/16 12:00 66 11/27/16 08:00 62 11/27/16 07:52 98.0 55 19 173/72 98 11/27/16 04:32 98.5 59 20 165/71 98 11/27/16 04:03 58 11/27/16 00:20 98.3 65 20 125/58 96 11/27/16 00:03 63 11/26/16 22:05 Nasal Cannula 2.0 11/26/16 20:33 50 11/26/16 20:09 98.2 66 20 119/57 97 11/26/16 16:21 98.3 65 18 135/62 98 11/26/16 16:05 61 11/26/16 12:17 98.3 64 19 140/59 97 11/26/16 12:05 64 11/26/16 08:00 Nasal Cannula 2.0 11/26/16 08:00 67 11/26/16 07:52 98.8 64 18 142/84 98 11/26/16 04:56 98.6 88 18 147/78 95 11/26/16 04:25 62 11/26/16 00:20 65 11/25/16 23:49 97.8 65 18 133/70 98 11/25/16 21:49 Nasal Cannula 2.0 Vital Signs Date Time Temp Pulse Resp B/P Pulse Ox O2 Delivery O2 Flow Rate FiO2 11/28/16 18:41 98.7 53 22 160/73 94 11/28/16 16:30 Room Air 11/26/16 22:05 2.0 Intake and Output 11/27/16 11/27/16 11/28/16 15:00 23:00 07:00 Intake Total 650 ml 300 ml Balance 650 ml 300 ml Exam Constitutional: alert, oriented, well developed Respiratory: clear to auscultation, normal air movement Cardiovascular: nl pulses, regular rate and rhythm, No edema, No murmurs/extra sounds, No rub Gastrointestinal: bowel sounds, nl liver, spleen, non-tender, soft, No mass, No rebound or guarding Musculoskeletal: nl extremities to inspection Extremities: normal pulses, No clubbing, No cyanosis, No edema Neurological: ENVIRONMENTAL SERVICES FLOOR TECH II-XII intact, nl mental status, nl speech, nl strength Results Result Diagram: 11/28/16 0750 11/27/16 0546 Results 24 hrs Laboratory Tests Test 11/28/16 07:50 White Blood Count 5.6 Red Blood Count 4.60 L Hemoglobin 12.9 L Hematocrit 39.1 L Mean Corpuscular Volume 85.0 Mean Corpuscular Hemoglobin 28.0 L Mean Corpuscular Hemoglobin Concent 33.0 Red Cell Distribution Width 13.4 Platelet Count 147 # Mean Platelet Volume 9.4 Neutrophils % 67.0 Lymphocytes % 18.0 Monocytes % 9.1 Eosinophils % 4.1 Basophils % 0.4 Nucleated Red Blood Cells % 0.0 Neutrophils # 3.8 Lymphocytes # 1.0 Monocytes # 0.5 Eosinophils # 0.2 Basophils # 0.0 Nucleated Red Blood Cells # 0.0 Medications Medications Current Medications Ondansetron HCl (Zofran Inj) 4 mg Q6H PRN IV NAUSEA AND/OR VOMITING; Start at 09:30 Aspirin (Aspirin) 81 mg DAILY PO Last administered on 11/28/16 08:53; Admin Dose 81 MG; Start 11/22/16 at 10:30 Acetaminophen (Tylenol Tab) 650 mg Q6H PRN PO PAIN LEVEL 1-3 OR FEVER; Start at 09:30 Docusate Sodium (Colace) 100 mg Q12H PRN PO CONSTIPATION Last administered on 08:45; Admin Dose 100 MG; Start 11/22/16 at 09:30 Pantoprazole (Protonix Tab) 40 mg DAILY@06 PO Last administered on 11/28/16 06 :23; Admin Dose 40 MG; Start 11/22/16 at 10:30 Atorvastatin Calcium (Lipitor) 40 mg QHS PO Last administered on 11/27/16 20: 38; Admin Dose 40 MG; Start 11/22/16 at 21:00 Finasteride (Proscar) 5 mg DAILY PO Last administered on 11/28/16 08:54; Admin Dose 5 MG; Start 11/22/16 at 11:30 Benazepril HCl (Lotensin) 5 mg DAILY PO Last administered on 11/28/16 09:00; Admin Dose 5 MG; Start 11/23/16 at 09:00 Senna (Senokot) 2 tab BID PO Last administered on 11/28/16 08:53; Admin Dose 2 TAB; Start 11/23/16 at 14:00 Sodium Biphosphate/ Sodium Phosphate (Fleet Enema) [address] CONSTIPATION Last administered on 11/25/16 08:48; Admin Dose 133 ML; Start at 12:00 Levothyroxine Sodium (Synthroid) 50 mcg Q2D@06 PO Last administered on 06:00; Admin Dose 50 MCG; Start 11/28/16 at 06:00 Levothyroxine Sodium (Synthroid) 75 mcg Q2D@06 PO Last administered on 06:36; Admin Dose 75 MCG; Start 11/27/16 at 06:00 Patient Own Medication 2 ea 2 ea TID PO Last administered on 11/28/16 12:10; Admin Dose 2 EA; Start 11/26/16 at 21:00 Ceftriaxone Sodium (Rocephin) 50 ml @ 100 mls/hr Q24H IVPB Last administered on 11/28/16 00:00; Admin Dose 100 MLS/HR; Start 11/27/16 at 22:00 MAKAYLA RAMIREZ MD Nov 28, 2016 20:28
[2016-11-28] MEDS: ATORVASTATIN 40 MG TAB PO SCH (20:50)
[2016-11-28] MEDS: CEFTRIAXONE 2 GM/50 ML (PMX) 50 ML IVPB SCH ×2 (22:00)
[2016-11-29 02:33] VITALS: BP 182/78; PULSE 61
[2016-11-29] MEDS ORDERED: BENAZEPRIL 5 MG TAB PO ONE (03:00)
[2016-11-29 04:15] VITALS: BP 155/70; PULSE 55; RESP 18
[2016-11-29] MEDS: LEVOTHYROXINE 75 MCG TAB PO SCH (05:44)
[2016-11-29] MEDS: PANTOPRAZOLE (EC) 40 MG TAB PO SCH (05:44)
[2016-11-29 06:19] VITALS: BP 152/71; PULSE 54
[2016-11-29 07:14] VITALS: BP 160/69; RESP 22
[2016-11-29] MEDS: ASPIRIN 81 MG TAB PO SCH (09:26)
[2016-11-29] MEDS: SENNA TAB PO SCH ×2 (09:27→20:43)
[2016-11-29] MEDS: FINASTERIDE 5 MG TAB PO SCH (09:27)
[2016-11-29] MEDS: BENAZEPRIL 5 MG TAB PO SCH (09:28)
[2016-11-29] MEDS: HERBAL LAXATIVE PO SCH ×3 (09:31→21:00)
--- NOTE | 2016-11-29 13:33 | CONS ---
Date/Time of Note Date/Time of Note DATE: 11/29/16 TIME: 13:22 Assessment/Plan Assessment/Plan Chief Complaint/Hosp Course Assessment/Impression: - bacteremia due to Haemophilus species. Haemophilus species is a part of HACEK group, which comes from the mouth and throat. 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 - s/p CABG, TAVR. Transthoracic echo was negative for endocarditis. - a small gallstone vs. gallbladder polyp, Pt does not have symptomatology of acute cholecystitis - density in L lung, possible changes post microwave ablation or rounded atelectasis. This finding seems unchanged compared to his previous CXR and chest CT performed at [facility] in 2016 (I am a [facility] provider too) - BPH, intermittent dysuria - Hypothyroidism Recommendations: - Agree with Dr. Turk that transesophageal echo will be a high risk for this Pt given his age and h/o laryngeal CA/XRT. - Continue ceftriaxone (11/27/2016-) via PICC for 6 weeks according to AHA recommendation (Barrour et al 2015) for empiric treatment for prosthetic valve infection. - Recommend that weekly CBC and CMP be checked while Pt's on ceftriaxone for review by the ordering physician. Management d/w Pt and MORIS Allison Above d/w Dr. Johnson Problems: Consultation Date/Type/Reason Admit Date/Time Nov 22, 2016 at 06:14 Initial Consult Date 11/24/16 Type of Consultation: Infectious Disease Referring Provider: MAKAYLA RAMIREZ MD 24 HR Interval Summary Free Text/Dictation Facial and neck CT's negative for abscess. Awaiting PICC line placement per MORIS Allison. Multiple questions re: food restrictions; appreciative of care. Exam/Review of Systems Vital Signs Vitals Vital Signs Date Time Temp Pulse Resp B/P Pulse Ox O2 Delivery O2 Flow Rate FiO2 11/29/16 07:14 97.5 62 22 160/69 98 11/29/16 04:15 Room Air 11/26/16 22:05 2.0 Intake and Output 11/28/16 11/28/16 11/29/16 15:00 23:00 07:00 Intake Total 770 ml 520 ml Balance 770 ml 520 ml Exam Constitutional: alert, oriented, well developed Psych: nl mood/affect, no complaints Head: atraumatic, normocephalic Eyes: nl sclera Neck: supple Respiratory: clear to auscultation, normal air movement Cardiovascular: regular rate and rhythm Gastrointestinal: non-tender, soft Musculoskeletal: nl extremities to inspection Extremities: normal pulses, No clubbing, No edema Neurological: nl mental status, nl speech, nl strength Skin: nl turgor, No rash or lesions Results Result Diagram: 11/28/16 0750 11/27/16 0546 Medications Medications Current Medications Ondansetron HCl (Zofran Inj) 4 mg Q6H PRN IV NAUSEA AND/OR VOMITING; Start at 09:30 Aspirin (Aspirin) 81 mg DAILY PO Last administered on 11/29/16 09:26; Admin Dose 81 MG; Start 11/22/16 at 10:30 Acetaminophen (Tylenol Tab) 650 mg Q6H PRN PO PAIN LEVEL 1-3 OR FEVER; Start at 09:30 Docusate Sodium (Colace) 100 mg Q12H PRN PO CONSTIPATION Last administered on 08:45; Admin Dose 100 MG; Start 11/22/16 at 09:30 Pantoprazole (Protonix Tab) 40 mg DAILY@06 PO Last administered on 11/29/16 05 :44; Admin Dose 40 MG; Start 11/22/16 at 10:30 Atorvastatin Calcium (Lipitor) 40 mg QHS PO Last administered on 11/28/16 20: 50; Admin Dose 40 MG; Start 11/22/16 at 21:00 Finasteride (Proscar) 5 mg DAILY PO Last administered on 11/29/16 09:27; Admin Dose 5 MG; Start 11/22/16 at 11:30 Benazepril HCl (Lotensin) 5 mg DAILY PO Last administered on 11/29/16 09:28; Admin Dose 5 MG; Start 11/23/16 at 09:00 Senna (Senokot) 2 tab BID PO Last administered on 11/29/16 09:27; Admin Dose 2 TAB; Start 11/23/16 at 14:00 Sodium Biphosphate/ Sodium Phosphate (Fleet Enema) 133 ml DAILY PRN [place] CONSTIPATION Last administered on 11/25/16 08:48; Admin Dose 133 ML; Start at 12:00 Levothyroxine Sodium (Synthroid) 50 mcg Q2D@06 PO Last administered on 06:00; Admin Dose 50 MCG; Start 11/28/16 at 06:00 Levothyroxine Sodium (Synthroid) 75 mcg Q2D@06 PO Last administered on 05:44; Admin Dose 75 MCG; Start 11/27/16 at 06:00 Patient Own Medication 2 ea 2 ea TID PO Last administered on 11/29/16 13:20; Admin Dose 2 EA; Start 11/26/16 at 21:00 Ceftriaxone Sodium (Rocephin) 50 ml @ 100 mls/hr Q24H IVPB Last administered on 11/28/16 22:00; Admin Dose 100 MLS/HR; Start 11/27/16 at 22:00 Procedures Procedures Face and Soft Tissue Neck CT 11/28/16: FINDINGS: No discrete focal mass lesion, enlarged lymph node meeting size criteria, significant soft tissue swelling or focal fluid collection is identified throughout the face, and soft tissues of the neck. No discrete mass is seen in the larynx. The pharynx is grossly unremarkable. The thyroid gland and rest of visceral space structures are unremarkable. The parapharyngeal and retropharyngeal spaces are clear. Carotid atherosclerotic calcifications are noted. Parotid glands appear unremarkable. Submandibular glands are small. The imaged insurance sales supervisor spaces are symmetric. Skull base appears intact. The perivertebral and posterior cervical spaces are unremarkable. Noted are intraocular lens replacements. The oral cavity is partially obscured by artifacts from dental work, without gross abnormality seen. There is severe polypoid bilateral maxillary sinus mucosal thickening, partial bilateral anterior ethmoid air cell opacification, mild right and moderate left frontal sinus mucosal thickening, and partial left sphenoid sinus opacification. There is spondylosis with minimal - mild grade 1 anterolisthesis seen at T2-3 through T4- 5. Right apical post inflammatory/granulomatous changes are noted with scarring and calcification. IMPRESSION: 1. No acute abnormality, discrete mass or lymphadenopathy identified in the face , or neck on this noncontrast evaluation. 2. Small parotid glands, possibly sequela of prior radiation treatment. 3. Paranasal sinus disease described above. PAT HANKS NP Nov 29, 2016 13:33
[2016-11-29] MEDS ORDERED: LIDOCAINE 1% (MPF) 5 ML VIAL SC ONE (15:30)
--- NOTE | 2016-11-29 17:48 | RADRPT ---
PROCEDURE: Targeted sonogram of the left upper extremity for PICC line insertion. CLINICAL INDICATION: The insertion planning. TECHNIQUE: Targeted imaging was performed over the left upper extremity. COMPARISON: No. FINDINGS: Targeted sonography demonstrates a left upper extremity artery and vein resting adjacent to each oth er. Findings are present adequate for there intended purpose of a PICC line catheter placement. IMPRESSION: Normal targeted sonogram of the left upper extremity. The targeted vein and artery are patent. RPTAT:AAJJ Physician Katia Date Time Electronically viewed and signed by Physician Katia on 11/29/2016 17:48 ALEE/
--- NOTE | 2016-11-29 17:50 | RADRPT ---
PROCEDURE: XR Chest. CLINICAL INDICATION: PICC line catheter placement check. TECHNIQUE: Single frontal view of the chest was obtained COMPARISON: None FINDINGS: The soft tissues are normal. The bony elements are normal. The heart is enlarged. A mediastinotom y was performed. The cardiomediastinal silhouette and hilar structures are normal. The pulmonary va sculature is normal. There are vascular calcifications in the aortic arch. There is plate-like atel ectasis lateral to the left hilum and in the left lower lobe. The costophrenic angles are normal. IMPRESSION: 1. The PICC line catheter enters the left arm with its tip projecting at the level of the right atri um. 2. Status post median sternotomy. 3. Plate-like areas of atelectasis in the left mid and lower lung field. 4. Mild cardiomegaly. RPTAT:AAJJ Physician Katia Date Time Electronically viewed and signed by Timur Zapata Physician on 11/29/2016 17:50 ALEE/
--- NOTE | 2016-11-29 18:36 | PN ---
Date/Time of Note Date/Time of Note DATE: 11/29/16 TIME: 18:32 Assessment/Plan VTE Prophylaxis VTE Prophylaxis Intervention: contraindicated VTE Contraindication Reason: heparin induced thrombocytopenia Lines/Catheters IV Catheter Type (from Nrs): PICC Line Central line still needed: Yes Urinary Cath still in place: No Assessment/Plan Problems: (1) Mobitz (type) II atrioventricular block Status: Resolved (2) Bradycardia, unspecified Status: Resolved (3) Near syncope Status: Resolved (4) Thrombocytopenia Status: Resolved (5) Gram-negative bacteremia Status: Resolved Comment: MIGUEL organism. 6 weeks of IV ceftriaxone as outpt. for suspected endocarditis. Check BMP, CBC weekly. (6) Generalized weakness Status: Acute Comment: cont. PT at home after d/c (7) Pure hypercholesterolemia Status: Chronic Comment: Cont. statin after d/c (8) Gastro-esophageal reflux disease without esophagitis Status: Chronic Comment: cont. PPI after d/c (9) Hypothyroidism Status: Chronic Comment: Cont. to alternate LT4 dose 50 w/ 75 mcg qod Qualifiers: Hypothyroidism type: acquired Qualified Code: E03.9 - Acquired hypothyroidism (10) Enlarged prostate with lower urinary tract symptoms (LUTS) Status: Chronic Comment: Cont. finasteride 5 mg daily Qualifiers: Prostatic enlargement morphology: unspecified morphology Qualified Code: N40.1 - Benign prostatic hyperplasia with lower urinary tract symptoms, unspecified morphology (11) Atherosclerotic heart disease of [place] coronary artery without angina pectoris Status: Chronic Comment: Cont. ASA 81 mg and f/u w/ cards Qualifiers: [place] vs. transplanted heart: [place] heart Qualified Code: I25.10 - Atherosclerosis of [place] coronary artery of [place] heart without angina pectoris Cont'd Hospitalization Reason: Plan d/c home tomorrow w/ HHN and HHPT Subjective 24 Hr Interval Summary Constitutional: improved, no complaints Respiratory: no complaints Cardiovascular: no complaints Gastrointestinal: no complaints Genitourinary: no complaints Musculoskeletal: no complaints Neurologic: no complaints Exam/Review of Systems Vital Signs Vitals VS - Last 72 Hours, by Label Date Time Temp Pulse Resp B/P Pulse Ox O2 Delivery O2 Flow Rate FiO2 11/29/16 07:14 97.5 62 22 160/69 98 11/29/16 06:19 54 152/71 11/29/16 04:15 55 18 155/70 99 Room Air 11/29/16 02:33 61 182/78 11/28/16 22:04 98.0 61 16 159/77 98 11/28/16 18:41 98.7 53 22 160/73 94 11/28/16 16:30 98.5 58 18 126/62 98 Room Air 11/28/16 16:00 55 11/28/16 12:30 97.5 58 18 140/71 97 Room Air 11/28/16 12:00 90 11/28/16 09:17 58 11/28/16 08:30 99.1 59 18 140/69 97 Room Air 11/28/16 08:00 52 11/28/16 04:48 54 11/28/16 03:56 98.0 55 18 160/77 98 11/28/16 00:18 52 11/27/16 23:42 98.0 60 20 144/68 98 11/27/16 20:20 59 11/27/16 19:58 98.9 67 18 118/62 97 11/27/16 16:04 98.6 63 20 127/57 96 11/27/16 16:00 59 11/27/16 12:07 98.7 73 18 156/67 97 11/27/16 12:00 66 11/27/16 08:00 62 11/27/16 07:52 98.0 55 19 173/72 98 11/27/16 04:32 98.5 59 20 165/71 98 11/27/16 04:03 58 11/27/16 00:20 98.3 65 20 125/58 96 11/27/16 00:03 63 11/26/16 22:05 Nasal Cannula 2.0 11/26/16 20:33 50 11/26/16 20:09 98.2 66 20 119/57 97 VS - Last 72 Hours, by Label Date Time Temp Pulse Resp B/P Pulse Ox O2 Delivery O2 Flow Rate FiO2 11/29/16 07:14 97.5 62 22 160/69 98 11/29/16 06:19 54 152/71 11/29/16 04:15 55 18 155/70 99 Room Air 11/29/16 02:33 61 182/78 11/28/16 22:04 98.0 61 16 159/77 98 11/28/16 18:41 98.7 53 22 160/73 94 11/28/16 16:30 98.5 58 18 126/62 98 Room Air 11/28/16 16:00 55 11/28/16 12:30 97.5 58 18 140/71 97 Room Air 11/28/16 12:00 90 11/28/16 09:17 58 11/28/16 08:30 99.1 59 18 140/69 97 Room Air 11/28/16 08:00 52 11/28/16 04:48 54 11/28/16 03:56 98.0 55 18 160/77 98 11/28/16 00:18 52 11/27/16 23:42 98.0 60 20 144/68 98 11/27/16 20:20 59 11/27/16 19:58 98.9 67 18 118/62 97 11/27/16 16:04 98.6 63 20 127/57 96 11/27/16 16:00 59 11/27/16 12:07 98.7 73 18 156/67 97 11/27/16 12:00 66 11/27/16 08:00 62 11/27/16 07:52 98.0 55 19 173/72 98 11/27/16 04:32 98.5 59 20 165/71 98 11/27/16 04:03 58 11/27/16 00:20 98.3 65 20 125/58 96 11/27/16 00:03 63 11/26/16 22:05 Nasal Cannula 2.0 11/26/16 20:33 50 11/26/16 20:09 98.2 66 20 119/57 97 Vital Signs Date Time Temp Pulse Resp B/P Pulse Ox O2 Delivery O2 Flow Rate FiO2 11/29/16 07:14 97.5 62 22 160/69 98 11/29/16 04:15 Room Air 11/26/16 22:05 2.0 Intake and Output 11/28/16 11/28/16 11/29/16 15:00 23:00 07:00 Intake Total 770 ml 520 ml Balance 770 ml 520 ml Exam Constitutional: alert, oriented, well developed Respiratory: clear to auscultation, normal air movement Cardiovascular: edema (1+ BLE), nl pulses, regular rate and rhythm, No murmurs/extra sounds, No rub Gastrointestinal: bowel sounds, nl liver, spleen, non-tender, soft, No mass, No rebound or guarding Musculoskeletal: nl extremities to inspection Extremities: edema (1+ BLE), No clubbing, No cyanosis Neurological: [employer] II-XII intact, nl mental status, nl speech, nl strength Results Result Diagram: 11/28/16 0750 11/27/16 0546 Medications Medications Current Medications Ondansetron HCl (Zofran Inj) 4 mg Q6H PRN IV NAUSEA AND/OR VOMITING; Start at 09:30 Aspirin (Aspirin) 81 mg DAILY PO Last administered on 11/29/16 09:26; Admin Dose 81 MG; Start 11/22/16 at 10:30 Acetaminophen (Tylenol Tab) 650 mg Q6H PRN PO PAIN LEVEL 1-3 OR FEVER; Start at 09:30 Docusate Sodium (Colace) 100 mg Q12H PRN PO CONSTIPATION Last administered on 08:45; Admin Dose 100 MG; Start 11/22/16 at 09:30 Pantoprazole (Protonix Tab) 40 mg DAILY@06 PO Last administered on 11/29/16 05 :44; Admin Dose 40 MG; Start 11/22/16 at 10:30 Atorvastatin Calcium (Lipitor) 40 mg QHS PO Last administered on 11/28/16 20: 50; Admin Dose 40 MG; Start 11/22/16 at 21:00 Finasteride (Proscar) 5 mg DAILY PO Last administered on 11/29/16 09:27; Admin Dose 5 MG; Start 11/22/16 at 11:30 Benazepril HCl (Lotensin) 5 mg DAILY PO Last administered on 11/29/16 09:28; Admin Dose 5 MG; Start 11/23/16 at 09:00 Senna (Senokot) 2 tab BID PO Last administered on 11/29/16 09:27; Admin Dose 2 TAB; Start 11/23/16 at 14:00 Sodium Biphosphate/ Sodium Phosphate (Fleet Enema) 133 ml DAILY PRN [place] CONSTIPATION Last administered on 11/25/16 08:48; Admin Dose 133 ML; Start at 12:00 Levothyroxine Sodium (Synthroid) 50 mcg Q2D@06 PO Last administered on 06:00; Admin Dose 50 MCG; Start 11/28/16 at 06:00 Levothyroxine Sodium (Synthroid) 75 mcg Q2D@06 PO Last administered on 05:44; Admin Dose 75 MCG; Start 11/27/16 at 06:00 Patient Own Medication 2 ea 2 ea TID PO Last administered on 11/29/16 13:20; Admin Dose 2 EA; Start 11/26/16 at 21:00 Ceftriaxone Sodium (Rocephin) 50 ml @ 100 mls/hr Q24H IVPB Last administered on 11/28/16 22:00; Admin Dose 100 MLS/HR; Start 11/27/16 at 22:00 IV Flush (NS 10 ml) 10 ml PRN PRN IV IV PROTOCOL; Start 11/29/16 at 18:30 MAKAYLA RAMIREZ MD Nov 29, 2016 18:36
[2016-11-29 19:21] VITALS: BP 156/69; RESP 20
[2016-11-29] MEDS: ATORVASTATIN 40 MG TAB PO SCH (20:38)
[2016-11-29] MEDS: CEFTRIAXONE 2 GM/50 ML (PMX) 50 ML IVPB SCH (22:22)
[2016-11-30] MEDS: PANTOPRAZOLE (EC) 40 MG TAB PO SCH (05:54)
[2016-11-30] MEDS: LEVOTHYROXINE 50 MCG TAB PO SCH (05:55)
[2016-11-30 07:32] VITALS: BP 152/64; RESP 18
[2016-11-30 08:38] VITALS: BP 148/63; PULSE 60
[2016-11-30] MEDS: ASPIRIN 81 MG TAB PO SCH (08:41)
[2016-11-30] MEDS: FINASTERIDE 5 MG TAB PO SCH (08:41)
[2016-11-30] MEDS: BENAZEPRIL 5 MG TAB PO SCH (08:42)
[2016-11-30] MEDS: SENNA TAB PO SCH (08:43)
[2016-11-30] MEDS: HERBAL LAXATIVE PO SCH ×2 (09:27→13:59)
--- NOTE | 2016-11-30 11:04 | CONS ---
Date/Time of Note Date/Time of Note DATE: 11/30/16 TIME: 11:00 Assessment/Plan Assessment/Plan Chief Complaint/Hosp Course Assessment/Impression: - bacteremia due to Haemophilus species. Haemophilus species is a part of HACEK group, which comes from the mouth and throat. 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 - s/p CABG, TAVR. Transthoracic echo was negative for endocarditis. - a small gallstone vs. gallbladder polyp, Pt does not have symptomatology of acute cholecystitis - density in L lung, possible changes post microwave ablation or rounded atelectasis. This finding seems unchanged compared to his previous CXR and chest CT performed at [facility] in 2016 (I am a [facility] provider too) - BPH, intermittent dysuria - Hypothyroidism Recommendations: - Agree with Dr. Turk that transesophageal echo will be a high risk for this Pt given his age and h/o laryngeal CA/XRT. - Continue ceftriaxone (11/27/2016-) via PICC for 6 weeks according to AHA recommendation (Barrour et al 2015) for empiric treatment for prosthetic valve infection. - Recommend that weekly CBC and CMP be checked while Pt's on ceftriaxone for review by the ordering physician. DC planning in progress Management d/w Pt and [facility] Arzate Above d/w Dr. Johnson Problems: Consultation Date/Type/Reason Admit Date/Time Nov 22, 2016 at 06:14 Initial Consult Date 11/24/16 Type of Consultation: Infectious Disease Referring Provider: MAKAYLA RAMIREZ MD 24 HR Interval Summary Free Text/Dictation Got PICC line yesterday evening and HL was removed from left foot area. Anxious to go home. No complaints. Plan to give Ceftriaxone around 1 pm prior to DC home today per d/w MORIS Arzate. Exam/Review of Systems Vital Signs Vitals Vital Signs Date Time Temp Pulse Resp B/P Pulse Ox O2 Delivery O2 Flow Rate FiO2 11/30/16 08:38 60 148/63 11/30/16 07:32 98.1 18 98 11/29/16 04:15 Room Air 11/26/16 22:05 2.0 Intake and Output 11/29/16 11/29/16 11/30/16 15:00 23:00 07:00 Intake Total 2210 ml 600 ml Balance 2210 ml 600 ml Exam Constitutional: alert, oriented, well developed. Male friend at bedside. Psych: nl mood/affect, no complaints Head: atraumatic, normocephalic Eyes: nl sclera Neck: supple Respiratory: clear to auscultation, normal air movement Cardiovascular: regular rate and rhythm Gastrointestinal: non-tender, soft Musculoskeletal: nl extremities to inspection Extremities: normal pulses, other (LUE PICC c/d/i) No clubbing, No edema Neurological: nl mental status, nl speech, nl strength Skin: nl turgor, No rash or lesions Results Result Diagram: 11/28/16 0750 11/27/16 0546 Medications Medications Current Medications Ondansetron HCl (Zofran Inj) 4 mg Q6H PRN IV NAUSEA AND/OR VOMITING; Start at 09:30 Aspirin (Aspirin) 81 mg DAILY PO Last administered on 11/30/16 08:41; Admin Dose 81 MG; Start 11/22/16 at 10:30 Acetaminophen (Tylenol Tab) 650 mg Q6H PRN PO PAIN LEVEL 1-3 OR FEVER; Start at 09:30 Docusate Sodium (Colace) 100 mg Q12H PRN PO CONSTIPATION Last administered on 08:45; Admin Dose 100 MG; Start 11/22/16 at 09:30 Pantoprazole (Protonix Tab) 40 mg DAILY@06 PO Last administered on 11/30/16 05 :54; Admin Dose 40 MG; Start 11/22/16 at 10:30 Atorvastatin Calcium (Lipitor) 40 mg QHS PO Last administered on 11/29/16 20: 38; Admin Dose 40 MG; Start 11/22/16 at 21:00 Finasteride (Proscar) 5 mg DAILY PO Last administered on 11/30/16 08:41; Admin Dose 5 MG; Start 11/22/16 at 11:30 Benazepril HCl (Lotensin) 5 mg DAILY PO Last administered on 11/30/16 08:42; Admin Dose 5 MG; Start 11/23/16 at 09:00 Senna (Senokot) 2 tab BID PO Last administered on 11/29/16 09:27; Admin Dose 2 TAB; Start 11/23/16 at 14:00 Sodium Biphosphate/ Sodium Phosphate (Fleet Enema) 133 ml DAILY PRN [place] CONSTIPATION Last administered on 11/25/16 08:48; Admin Dose 133 ML; Start at 12:00 Levothyroxine Sodium (Synthroid) 50 mcg Q2D@06 PO Last administered on 05:55; Admin Dose 50 MCG; Start 11/28/16 at 06:00 Levothyroxine Sodium (Synthroid) 75 mcg Q2D@06 PO Last administered on 05:44; Admin Dose 75 MCG; Start 11/27/16 at 06:00 Patient Own Medication 2 ea TID PO Last administered on 11/29/16 13:20; Admin Dose 2 EA; Start 11/26/16 at 21:00 IV Flush 10 ml 10 ml PRN PRN IV IV PROTOCOL; Start 11/29/16 at 18:30 Ceftriaxone Sodium (Rocephin) 50 ml @ 100 mls/hr Q24H IVPB ; Start 11/30/16 at 13:00 Procedures Procedures CXR 11/29/16: 1. The PICC line catheter enters the left arm with its tip projecting at the level of the right atrium. 2. Status post median sternotomy. 3. Plate-like areas of atelectasis in the left mid and lower lung field. 4. Mild cardiomegaly. PAT HANKS [employer] Nov 30, 2016 11:04
[2016-11-30] MEDS ORDERED: CEFTRIAXONE 2 GM/50 ML (PMX) 50 ML IVPB SCH (13:00)
--- NOTE | 2016-11-30 13:11 | PDOCDIS ---
Discharge Instructions DIAGNOSIS Discharge Diagnosis: Gram (-) bacteremia CONDITION Patient Condition: Good HOME CARE INSTRUCTIONS: Special Diet: cardiac ACTIVITY: Activity Restrictions: No Restrictions Bathing Restrictions: ShowerActivity Restrictions Comment: Work with home health physical activity daily FOLLOW UP/APPOINTMENTS Appointments f/u w/ cardiology 2-4 weeks f/u w/ PMD 2-4 weeks check BMP, CBC weekly while on MAKAYLA Wilson MD Nov 30, 2016 13:11
[2016-11-30] MEDS ORDERED: CEFT2PIG2 IVPB (13:16)
[2016-11-30] MEDS ORDERED: SYN75 PO (13:16)
[2016-11-30] MEDS ORDERED: LEVO50TA83 PO (13:16)
[2016-11-30] MEDS ORDERED: Patient Own Medication PO (13:16)
--- NOTE | 2016-11-30 13:26 | DS ---
Date/Time of Note Date/Time of Note DATE: 11/30/16 TIME: 13:17 Discharge Summary Admission/Discharge Info Admit Date/Time Nov 22, 2016 at 06:14 Discharge Date/Time 11/30/2016 @ 1400 Final Diagnosis gram (-) bacteremia Patient Condition: Good Consults Dr. Turk: cardiology, Dr. Hilton: ID Procedures CT C/A/P: No evidence of pulmonary embolism or aortic dissection, Irregular density within the posterior left upper lobe measuring 3.0 x 2.0 cm. Findings could represent rounded atelectasis; however, follow-up is recommended, Mild bibasilar atelectasis with an area of rounded atelectasis within the left posterior sulcus, Calcified pleural plaques within the left posterior sulcus could be due to old infectious/inflammatory process or prior asbestos exposure, Mild to moderate cardiomegaly, Vascular calcifications reflective of atherosclerosis, Cholelithiasis, Moderate sized hiatal hernia, Sigmoid diverticulosis without evidence of diverticulitis, Moderately enlarged prostate. CT face and neck: paranasal sinus disease and small parotids RUQ NEMESIO: Pancreas not seen. Limited visualization of left lobe of liver. Gallbladder wall thickness at upper limit of normal. Possible 6 mm gallbladder polyp as noted above. There is no specific evidence of acute cholecystitis seen. Please see above. Hx of Present Illness 86 y/o C M w/ h/o CAD s/p CABG, aortic valve disease s/p bioreplacement, s/p TAVR, laryngeal CA s/p XRT, hypothyroidism, hyperlipidemia, GERD, BPH in GH until early this am when he awoke to go to the bathroom which he usually does several times per night. However, in this case, was too weak to get up. Developed chills. GF called daughter who came over and tried to help pt. but pt. could not be helped and 911 had to be called. Pt. brought to [facility]. In ER pt. initially hypertensive and subsequently febrile to 101.3 but no source identified. Pt. had intermittent Mobitz II rhythm on the heart monitor. Pt. had CT angiogram and head CT that did not yield any acute findings and labs were also not helpful. Pt. admitted for monitoring, cardiology eval and further work-up. Hospital Course Pt. had no further episodes of Mobitz 2 heart block. However, did have recurrent fever and rigors associated w/ weakness and delirium. Pt. was started empirically on levaquin and ID was called. Cultures were positive for Hemophilus species. ID felt this was consistent w/ HACEK organism which could be causing endocarditis. Pt. at risk for endocarditis given h/o aortic valve replacement. However, b/c of h/o head and neck irradiation pt. was too high risk for GIULIA even though TTE was (-). B/c of this, it was felt that it would be safest to treat pt. empirically for endocarditis for 6 weeks w/ IV rocephin. Pt. started on this and home health arranged to continue IV antibiotics for this period. Pt. highly stable and ready for d/c. However, it should be noted that pt. remains below baseline w/ regard to physical strength in his lower extremities. Family opted against acute rehab unit and instead insisted on home health physical therapy. Pt. will do this on d/c. Home Meds Active Scripts Ceftriaxone Sod* (Rocephin* 2GM/D5W (PMX)) 2 Gm/50 Ml Iv.soln., 2 GM IVPB Q24H for 40 Days, #40 EA 0 Refills Prov:MAKAYLA RAMIREZ MD 11/30/16 Reported Medications Atorvastatin* (Atorvastatin*) 40 Mg Tablet, 40 MG PO QHS, #30 TAB 06/20/16 Omeprazole* (Omeprazole*) 20 Mg Capsule., 20 MG PO DAILY, #30 CAP 06/20/16 Finasteride* (Finasteride*) 5 Mg Tablet, 5 MG PO DAILY, TAB 06/20/16 Levothyroxine Sodium* (Levoxyl*) 50 Mcg Tablet, 50 MCG PO BEFORE BREAKFAST, #30 TAB 06/20/16 Aspirin (Low Dose Aspirin) 81 Mg Tablet., 81 MG PO DAILY, #30 TAB 06/20/16 Follow-up Plan f/u w/ cardiology 2-4 weeks f/u w/ PMD 2-4 weeks check BMP, CBC weekly while on rocephin MAKAYLA RAMIREZ MD Nov 30, 2016 13:26
[2016-11-30] MEDS ORDERED: SOD CHLORIDE 0.9% 100 ML ONE (17:55)
== END 2016-11-30 15:22 | disposition home health service (06) | DRG 289 ==
LOC: E/R 02:52 → MS4 06:14 → MS2 11-28 18:35
PROVIDERS: ADMIT Internal Medicine; ATTEND Internal Medicine
PROC: 02H633Z Insertion of Infusion Device into Right Atrium, Percutaneous Approach (ICD-10-PCS; principal; 2016-11-29)
DX: I33.0 Acute and subacute infective endocarditis (principal); J98.11 Atelectasis; I44.1 Atrioventricular block, second degree; R50.9 Fever, unspecified; B96.89 Other specified bacterial agents as the cause of diseases classified elsewhere; Z95.2 Presence of prosthetic heart valve; E03.9 Hypothyroidism, unspecified; Z95.1 Presence of aortocoronary bypass graft; N40.1 Benign prostatic hyperplasia with lower urinary tract symptoms; R33.8 Other retention of urine; E78.00 Pure hypercholesterolemia, unspecified; K21.9 Gastro-esophageal reflux disease without esophagitis; I51.7 Cardiomegaly; K59.00 Constipation, unspecified; Z79.82 Long term (current) use of aspirin; Z85.21 Personal history of malignant neoplasm of larynx; I25.10 Atherosclerotic heart disease of native coronary artery without angina pectoris
CPT/HCPCS: 36415; 36569; 70450; 70486; 70490; 71010; 71275; 74177; 76705; 76937; 80048; 80053; 80061; 81001; 81003; 82550; 82553; 83605; 83735; 84443; 84484; 85025; 85610; 85730; 86635; 87040; 87086; 92526; 92610; 93005; 93306; 96374; 96375; 97110; 97116; 97162; 97530; J0131; J0696; J1650; J1956; J2060; J2405; J7030; J7040; Q9967